=== PATIENT | female | born 1940 | race Caucasian/White ===

== ENCOUNTER 2020-05-09 08:40 | Outpatient (CLI) | payer MEDICARE, SELFPAY ==
--- NOTE | ~2020-05-09 | DEXA_ITS ---
Bone Density Report Name: Katia Sheth Age: 79 Sex: Female Ethnicity: White Date of : 1940 Indication: postmenopausal osteoporosis; monitoring treatment; height loss; Referring Provider: Gracy Sequeira Study: Bone densitometry was performed. Exam Date: May 09, 2020 Accession number: [id number] Bone Density: Region BMD T-score Z-score Classification AP Spine (L1-L4) 0.734 -2.8 -0.2 Osteoporosis Femoral Neck (Left) 0.542 -2.8 -0.5 Osteoporosis Total Hip (Left) 0.661 -2.3 -0.3 Osteopenia Total Hip Bilateral Avg 0.651 -2.4 -0.4 Osteopenia Femoral Neck (Right) 0.563 -2.6 -0.3 Osteoporosis Total Hip (Right) 0.639 -2.5 -0.5 Osteoporosis World Health Organization criteria for BMD impression classify patients as: Normal (T-score at or above -1.0), Osteopenia (T-score between -1.0 and -2.5), or Osteoporosis (T-score at or below -2.5). 10-year Fracture Risk: FRAX not reported because: Some T-score for Spine Total or Hip Total or Femoral Neck at or below -2.5 Treated for osteoporosis Previous Exams: Region Exam Age BMD T-score BMD Change BMD Change Date g/cm2 vs Baseline vs Previous AP Spine(L1-L4) 05/09/2020 79 0.734 -2.8 0.031(4.4%)# 0.016(2.2%) 09/25/2016 76 0.718 -3.0 0.015(2.1%)# -0.009(-1.3%) 09/23/2014 74 0.728 -2.9 0.024(3.5%)# 0.024(3.5%)# 08/01/2012 71 0.703 -3.1 Total Hip(Left) 05/09/2020 79 0.661 -2.3 -0.056(-7.9%)# -0.012(-1.8%) 09/25/2016 76 0.673 -2.2 -0.044(-6.2%)# -0.040(-5.6%)* 09/23/2014 74 0.713 -1.9 -0.005(-0.7%)# -0.005(-0.7%)# 08/01/2012 71 0.718 -1.8 Total Hip(Right) 05/09/2020 79 0.639 -2.5 0.005(0.8%)# -0.033(-4.9%)* 09/25/2016 76 0.672 -2.2 0.038(6.0%)# 0.008(1.2%) 09/23/2014 74 0.664 -2.3 0.030(4.7%)# 0.030(4.7%)# 08/01/2012 71 0.634 -2.5 *Denotes significance at 95% confidence level, LSC for AP Spine = 0.022 g/cm2, LSC for Total Hip = 0.027 g/cm2 Clinical Information Provided by Patient: Is being treated for osteoporosis Has used the following medications: Boniva (i.e. ibandronate), Vitamin D, Calcium Patient maximum height was 63.5 Menopause Age: 52 No regular weight bearing exercise Onset of menses at age 14 Number of children 2 Impression: The patient has osteoporosis, based on the Total Spine T-score. The BMD for the Total Hip(Right) decreased, changing by -4.9% since the last DXA exam. Discussion: SIGNIFICANT BONE L
--- NOTE | ~2020-05-09 | MM_ITS ---
CORRECTED REPORT SEE BOLD/ITALIC TEXT BELOW. 05/09/2020 sef EXAMINATION: MM screening rina BI w edgar HISTORY: Screening mammogram TECHNIQUE: Craniocaudal and mediolateral oblique 3-D tomosynthesis images were obtained and synthetic 2-D images were generated. CAD analysis was submitted and interpreted. COMPARISON: 04/29/2018, 11/05/2016 bilateral digital screening mammogram examinations BREAST PARENCHYMAL COMPOSITION: The breasts are heterogeneously dense, which may obscure small masses. FINDINGS: There is no evidence of suspicious mass, calcification, or architectural distortion to suggest malignancy in either breast. There has been no suspicious interval change. IMPRESSION: 1. No mammographic evidence of malignancy. 2. Recommend routine screening mammography in one year. BI-RADS Category 1: Negative Reviewed, dictated and finalized at location A. MTDD
== END 2020-05-09 08:41 | disposition home or self-care (01) ==
LOC: ANHIMG 08:48
PROVIDERS: PCP Family Medicine; Visit Provider Family Medicine
DX: Z12.31 Encounter for screening mammogram for malignant neoplasm of breast (principal); M81.0 Age-related osteoporosis without current pathological fracture; M85.852 Other specified disorders of bone density and structure, left thigh; M85.851 Other specified disorders of bone density and structure, right thigh
CPT/HCPCS: 77063; 77067; 77080

== ENCOUNTER 2021-06-06 17:15 | Inpatient (IN) | payer MEDICARE, SELFPAY ==
[2021-06-06] VITALS (7 sets, daily range): BP systolic 95–143; BP diastolic 57–73; PULSE 60–74; RESP 14–18; TEMP 36.3–36.6; O2SAT 98–100; BMI 20.7
--- NOTE | ~2021-06-06 | XR_ITS ---
EXAMINATION: XR hip RT min 2V EXAM DATE: 06/06/2021 18:23 INDICATION: Initial encounter following injury, with pain of the right hip. TECHNIQUE: Right hip frontal, crosstable lateral projections for interpretation. There is no prior study for comparison. FINDINGS: There is acute closed posttraumatic right subcapital femoral neck fracture with posterior a ngulation and probably mild impaction. Right hemipelvis intact. IMPRESSION: Acute right subcapital femoral neck fracture. Reviewed, dictated and finalized at location A.
--- NOTE | ~2021-06-06 | XR_ITS ---
EXAMINATION: XR surgery orthopedic EXAM DATE: 06/08/2021 15:39 INDICATION: Right olecranon fracture open reduction internal fixation. TECHNIQUE: Fluoroscopy used during right olecranon ORIF performed by Dr. Damian Andrea MD. Radiolo gist was not present for the imaging or procedure. Total fluoroscopic time of 21 seconds. The DAP f or this procedure was 0.0095 mGym2. A total of 5 images sent to PACS from the exam. FINDINGS: Images demonstrate reduction of previously seen distracted olecranon fracture, and placemen t of orthopedic fixation hardware. Correlate with procedure note. IMPRESSION: Fluoroscopy used during right olecranon ORIF. Reviewed, dictated and finalized at location A.
--- NOTE | ~2021-06-06 | XR_ITS ---
EXAMINATION: XR elbow RT 2V EXAM DATE: 06/06/2021 18:22 INDICATION: Right elbow pain. Fell on concrete. TECHNIQUE: Right elbow frontal and lateral projections. There is no prior study for comparison. FINDINGS: There is acute posttraumatic fracture through the middle of the right olecranon with about 2 cm of posterior retraction of the olecranon and also 90 degrees of rotation. There is evidence of a large posterior laceration indicating that this potentially could be open, please clinically correl ate. There is an overlying bandage. No elbow dislocation. IMPRESSION: Right olecranon fracture with significant retraction and angulation. Reviewed, dictated and finalized at location A. IMPRESSION: Right olecranon fracture with significant retraction and angulation .
--- NOTE | ~2021-06-06 | XR_ITS ---
EXAMINATION: XR hip RT min 2V DATE: 06/08/2021 16:36 INDICATION: Postoperative evaluation following bipolar type right hip hemiarthroplasty. TECHNIQUE: Anteroposterior and lateral views of the right hip were obtained. COMPARISON: 06/06/2021 FINDINGS: Interval resection of the fractured right femoral head and neck and placement of a bipolar type right hip hemiarthroplasty which appears well seated in near anatomic alignment. Expected small amount of subcutaneous gas in the postoperative bed. No new fractures identified. IMPRESSION: 1. Bipolar type right hip hemiarthroplasty, negative for postoperative purposes. Reviewed, dictated and finalized at location A. IMPRESSION: 1. Bipolar type right hip hemiarthroplasty, negative for postoperative purposes .
--- NOTE | 2021-06-06 18:12 | PC.NURSE ---
Pt in xray.
--- NOTE | 2021-06-06 18:45 | PC.NURSE ---
Attempted to place IV in patient. Pt states she would like to hold off on IV until seen by doctor and orders placed needing IV.
--- NOTE | 2021-06-06 18:52 | ED.GENADULT ---
HPI - General Adult General Chief complaint: Extremity Injury, Lower Stated complaint: hip pain after fall Time Seen by Provider: 06/06/21 17:47 Source: patient History of Present Illness HPI narrative: Patient is a 80 y/o female complaining right elbow and hip pain after a ground level fall on her drive way 3 hours ago. She describes her pain as sharp and rates it as 10/10. She states that movement worsens her pain. She was not able to get up after the fall. She did not hit her head and lose consciousness. She has no neck pain, back pain, chest pain or abdominal pain. She also has right elbow skin tear. She is not sure when she had her last Tetanus. Related Data Allergies Allergy/AdvReac Type Severity Reaction Status Date / Time Sulfa (Sulfonamide Allergy Unknown Skin Verified 06/06/21 23:05 Antibiotics) irritation sulfanilamide Allergy Unknown Unknown Verified 06/06/21 23:05 SULFA Allergy Unknown RASH Uncoded 09/29/14 13:40 Review of Systems Review of Systems: All systems reviewed & are unremarkable except as noted in HPI and below Constitutional: Constitutional: Denies chills, Denies fever(s), Denies headache(s) and Denies weakness Eyes: Eyes: Denies blurry vision ENT: Denies headache(s) and Denies neck pain Cardiovascular: Cardiovascular: Denies chest pain and Denies dyspnea Respiratory: Respiratory: Denies cough and Denies dyspnea Gastrointestinal: Gastrointestinal: Denies abdominal pain, Denies diarrhea, Denies nausea and Denies vomiting Genitourinary: Genitourinary: Denies hematuria and Denies dysuria Musculoskeletal: Musculoskeletal: Denies back pain, Reports arthralgias (right hip and elbow pain) and Denies neck pain Integumentary/Breasts: Skin/Breast: Reports other (skin tear right elbow) Neurologic: Denies headache(s) and Denies weakness PMFSH Past Medical History Medical History (Updated 06/15/21 @ 14:48 by Dot Morocho MD) Born by normal vaginal delivery Osteoporosis Surgical History Surgical History History of lumpectomy of right breast History of tonsillectomy History of tubal ligation [place] teeth removed Family History Family History Mother Family history of lung cancer Sibling Acute myocardial infarction Father Family history of Alzheimer's disease Social History Social History (Updated 06/06/21 @ 23:09 by Radha Mullins RN) Smoking status: Never smoker Second hand tobacco smoke exposure: No Alcohol intake: never Substance use: never Substance use type: does not use Living arrangements: alone Occupation/Education: retired Gender identity (if verbalized by the patient): Female Spiritual care concerns: No Agree to blood products: Yes Exam Const: General: no acute distress and well developed Orientation/consciousness: oriented to person, oriented to place, oriented to time and patient oriented x3 HENMT: Head: normocephalic Ears: external ears normal General nose exam: Normal external nose present Eyes: General: appearance normal, both eyes and all related structures Conjunctivae: conjunctivae normal Neck: Neck: normal visual inspection and full ROM Chest: Chest palpation & inspection: normal inspection of the chest and no tenderness Resp: Effort & Inspection: normal respiratory effort Auscultation: clear to auscultation bilaterally Cardio: Rate: regular rate Rhythm: regular rhythm GI: GI Palp: No abdominal tenderness and Yes Soft to palpation Skin: General skin exam: normal color and turgor normal Trauma: other (skin tear right elbow) Neuro: General: oriented to person, oriented to place, oriented to time and patient oriented x3 Cognition (Neuro): normal cognition Extrem: General: normal to inspection, full ROM and no pedal edema Right upper extremity: elbow/forearm swelling of the olecranon Right lower extremity: hip/thigh De
[2021-06-06] MEDS: MORPHINE SULFATE (*CRX) 4 MG/ML INJ IV PUSH ×2 (19:08→21:22)
[2021-06-06 19:10] LABS: Basophils Percent Auto 0.2 % (0.2-1.2); Eosinophils Absolute Auto 0.1 K/mm3 (0-0.3); Eosinophils Percent Auto 0.5 % (0-4.4); Hemoglobin 12.8 g/dL (12.0-15.0); Immature Granulocyte Absolute 0.07 K/mm3 (0.00-0.031); Immature Granulocyte Percent A 0.6 % (0-0.5); Lymphocytes Absolute Auto 1.28 K/mm3 (0.9-3.2); Lymphocytes Percent Auto 10.3 % (18.3-44.2); Mean Corpuscular Hemoglobin 28.7 pg (26-34); Mean Corpuscular Volume 89.7 fl (80-100); Mean Platelet Volume 9.3 fl (7.4-10.4); Monocytes Absolute Auto 0.8 K/mm3 (0.1-0.6); Monocytes Percent Auto 6.3 % (2.6-8.5); Neutrophils Absolute Auto 10.2 K/mm3 (1.3-6.7); Neutrophils Percent Auto 82.1 % (45.5-73.1); Platelet Count Result 202 k/mm3 (150-375); Red Blood Count 4.46 M/mm3 (4.2-5.4); Red Cell Distribution Width 12.4 % (11.5-14.5); White Blood Count 12.4 K/mm3 (4.5-10.0)
--- NOTE | 2021-06-06 19:14 | PC.NURSE ---
Assumed care of pt at this time. Pt alert, supine on stretcher. VSS.
[2021-06-06 19:19] LABS: INR 1.1; Prothrombin Time 13.8 Seconds (11.1-14.7)
[2021-06-06 19:20] LABS: Partial Thromboplastin Time 25.2 SECONDS (22.3-36.8)
[2021-06-06 19:24] LABS: Alanine Aminotransferase 24 U/L (4-35); Albumin Level 4.2 g/dL (3.5-5.1); Alkaline Phosphatase 38 U/L (38-126); Anion Gap 8 mmol/L (8-16); Aspartate Amino Transferase 34 U/L (14-36); Bilirubin,Total 0.6 mg/dL (0.2-1.3); Blood Urea Nitrogen 18 mg/dL (7-17); Calcium 9.2 mg/dL (8.4-10.2); Carbon Dioxide 23 mmol/L (22-30); Chloride 102 mmol/L (98-107); Estimated CRCL calculation 35 ml/min; Estimated Glomerular Filt Rate 60; Glucose 99 mg/dL (65-110); Potassium 4.6 mmol/L (3.4-5.0); Sodium 133 mmol/L (137-145)
[2021-06-06] MEDS: TETANUS,DIPHTHERIA,AC PERTUSSIS ADULT (0.5 ML) BOOSTRIX IM (19:31)
--- NOTE | 2021-06-06 21:11 | PM.IMPN ---
Subjective Date/time seen: 06/06/21 21:11 Objective Data Vital Signs Vital Signs: Vital Signs - 24 hr 06/06/21 17:26 06/06/21 18:25 06/06/21 19:02 Temperature 97.4 F L Pulse Rate 72 60 63 Respiratory Rate 15 15 15 Blood Pressure 95/73 L 136/57 L 143/63 H Pulse Oximetry 98 99 100 Meds/Results Medications: Active Medications Generic Name Dose Route Start Last Admin Trade Name Freq PRN Reason Stop Dose Admin Cefazolin Sodium 2 gm in 50 mls @ 100 mls/hr 06/06/21 20:49 Ancef 2 Gm/D5w 50 Ml IVPB 06/06/21 21:18 ONCE STA Morphine Sulfate 4 mg 06/06/21 19:54 Morphine Sulfate (*Crx) 4 Mg/Ml Inj IV PUSH Q4H PRN Pain Rated 7-10 Radiology Results: ITS Impressions Elbow X-Ray 06/06/21 18:27 IMPRESSION: Right olecranon fracture with significant retraction and angulation. Hip X-Ray 06/06/21 18:30 IMPRESSION: Acute right subcapital femoral neck fracture. Labs Labs: Laboratory Results - last 24 hr 06/06/21 06/06/21 06/06/21 19:03 19:03 19:03 WBC 12.4 H RBC 4.46 Hgb 12.8 Hct 40.0 MCV 89.7 MCH 28.7 MCHC 32.0 RDW 12.4 Plt Count 202 MPV 9.3 Immature Gran % (Auto) 0.6 H Neut % (Auto) 82.1 H Lymph % (Auto) 10.3 L [place] % (Auto) 6.3 Eos % (Auto) 0.5 Baso % (Auto) 0.2 Lymph # (Auto) 1.28 [place] # (Auto) 0.8 H Eos # (Auto) 0.1 Baso # (Auto) 0.0 Abs Immat Gran (auto) 0.07 H Absolute Neuts (auto) 10.2 H Absolute Nucleated RBC 0.0 Nucleated RBC % 0.0 PT 13.8 INR 1.1 APTT 25.2 Sodium 133 L Potassium 4.6 Chloride 102 Carbon Dioxide 23 Anion Gap 8 BUN 18 H Creatinine 0.90 Estim Creat Clear Calc 35 Estimated GFR 60 Glucose 99 Calcium 9.2 Total Bilirubin 0.6 AST 34 ALT 24 Alkaline Phosphatase 38 Total Protein 7.0 Albumin 4.2
--- NOTE | 2021-06-06 21:12 | PM.IMHP ---
H&P: HPI History of Present Illness Date/Time: 06/06/21 21:12 Chief Complaint: FALL Narrative: THIS IS A 80-YEAR-OLD FEMALE WITH KNOWN SIGNIFICANT PAST MEDICAL HISTORY DRCathy SUFFERED A FALL FROM A STEP UP DEVICE SHE WAS CLEAN THE WINDOWS AND ON HER WAY DOWN LOST HER MATERIAL LISTER AND FELT ON THE SIDE UNDO HER DRIVEWAY SHE HAS EXCRUCIATING PAIN OF HER RIGHT ELBOW AND LEFT HIP SHE WAS NOT ABLE TO GET UP ON HER ON THERE WAS NO LOSS OF CONSCIOUSNESS. SHE HAS BEEN IN HER USUAL STATE OF HEALTH UP UNTIL THIS, SHE DENIES ANY TRAUMA TO THE HEAD WELL. PRELIMINARY WORKUP WAS SIGNIFICANT FOR RIGHT HIP SUBCAPITAL FRACTURE AND RIGHT OLECRANON FRACTURE. Review of Systems Review of Systems: Narrative: PATIENT PRESENTED TO THE EMERGENCY ROOM AFTER FALL ON HER RIGHT SIDE AND EXCRUCIATING PAIN TO THE ELBOW AND HIP ON THE RIGHT SIDE Constitutional: Constitutional: Denies chills, Denies fatigue, Denies fever(s) and Denies weakness Eyes: Eyes: Denies change in vision ENT: Denies dysphagia, Denies vertigo, Denies dizziness, Denies nasal congestion, Denies nasal discharge and Denies nasal obstruction Cardiovascular: Cardiovascular: Denies irregular heart rhythm, Denies claudication, Denies lightheadedness, Denies radiating jaw, neck or arm pain, Denies palpitations and Denies dyspnea on exertion Respiratory: Respiratory: Denies cough and Denies dyspnea Gastrointestinal: Gastrointestinal: Denies dyspepsia, Denies diarrhea, Denies nausea and Denies vomiting Genitourinary: Genitourinary: Reports no additional female genitourinary complaints Musculoskeletal: Musculoskeletal: Reports deformity, Reports arthralgias and Reports limited range of motion Comments: RIGHT HIP AND RIGHT ELBOW Integumentary/Breasts: Skin/Breast: Reports system reviewed and no additional complaints, except as docu Neurologic: Reports system reviewed and no additional complaints, except as documented Psychiatric: Psychiatric: Reports no additional psychiatric complaints Endocrine: Endocrine: Reports no additional endocrine complaints Hematologic/Lymphatic: Hematologic/Lymphatic: Reports no additional hematologic/lymphatic complaints Allergic/Immunologic: Allergic/Immunologic: Reports no additional allergic/immunologic complaints [facility] Past Medical History Medical History (Updated 06/06/21 @ 22:29 by Al Mclean MD) Born by normal vaginal delivery Osteoporosis Surgical History Surgical History History of lumpectomy of right breast History of tonsillectomy History of tubal ligation [place] teeth removed Family History Family History Mother Family history of lung cancer Sibling Acute myocardial infarction Father Family history of Alzheimer's disease Social History Social History Smoking status: Never smoker Second hand tobacco smoke exposure: No Alcohol intake: never Substance use: never Substance use type: does not use Gender identity (if verbalized by the patient): Female Spiritual care concerns: Yes Agree to blood products: Yes Meds Home Medications and Allergies Home Medications Medication Instructions Recorded Confirmed Type No Home Medications 06/06/21 06/06/21 History Allergies Allergy/AdvReac Type Severity Reaction Status Date / Time Sulfa (Sulfonamide Allergy Unknown Skin Verified 06/06/21 17:29 Antibiotics) irritation sulfanilamide Allergy Unknown Unknown Verified 06/06/21 17:29 SULFA Allergy Unknown RASH Uncoded 09/29/14 13:40 Vital Signs Vital Signs - 24 hr 06/06/21 17:26 06/06/21 18:25 06/06/21 19:02 Temperature 97.4 F L Pulse Rate 72 60 63 Respiratory Rate 15 15 15 Blood Pressure 95/73 L 136/57 L 143/63 H Pulse Oximetry 98 99 100 Exam Narrative: Exam Narrative: LAYING IN GURNEY Const: General: comfortable, no acute distress, we
[2021-06-06] MEDS: ceFAZolin 2 GM/D5W 50 ML 2 GM/50 ML BAG IVPB (21:18)
[2021-06-06] MEDS: ONDANSETRON INJ 4 MG/2 ML VIAL IV PUSH (22:04)
--- NOTE | 2021-06-06 22:53 | ADMGEN ---
This patient, Katia Sheth, was admitted to Medical Room 348-01. Patient/family oriented to hospital policies and general routines including ID bracelet, bed and alarms, visiting hours, pain management, procedures, bathroom and other care routines, personal items, smoking policy, room service/diet, and visiting hours. Information on how to activate the Rapid Response Team has been discussed. Patient/Family are encouraged to report perceived risks to care and to ask questions if they do not understand what they are told or what they should do.
[2021-06-07 05:37] VITALS: BP 151/62; PULSE 73; RESP 17; TEMP 36.1; O2SAT 99
[2021-06-07] MEDS: MORPHINE SULFATE (*CRX) 4 MG/ML INJ IV PUSH ×4 (05:38→21:04)
--- NOTE | 2021-06-07 08:42 | PM.IMPN ---
Progress Note: A&P Assessment and Plan (1) Fall: Code(s): W19.XXXA - Unspecified fall, initial encounter Status: Acute Assessment and Plan: Fell from the running board of a truck while washing it abrasion to the right arm, and limited range of motion to left leg Right hip xray showed acute right subcapital femoral neck fracture Right elbow xray showed olecranon fracture with significant retraction and angulation. Ortho consult-thank you for your help surgery scheduled for 06/08/21 Morphine 4mg IV PRN for pain SCDs bedrest Mechanical fall PT OT (2) Closed displaced fracture of right femoral neck: Code(s): S72.001A - Fracture of unspecified part of neck of right femur, initial encounter for closed fracture Status: Acute Assessment and Plan: Right hip xray showed acute right subcapital femoral neck fracture Ortho consulted Morphine 4mg IV Q4hr PRN Bed rest (3) Closed fracture of right olecranon process: Qualifiers: Encounter type: initial encounter Qualified Code(s): S52.021A - Displaced fracture of olecranon process without intraarticular extension of right ulna, initial encounter for closed fracture Code(s): S52.021A - Displaced fracture of olecranon process without intraarticular extension of right ulna, initial encounter for closed fracture Status: Acute Assessment and Plan: Right elbow xray showed olecranon fracture with significant retraction and angulation. Ortho consulted thank you Morphine 4mg IV Q4hr PRN (4) Skin tear: Status: Acute Assessment and Plan: STATUS POST SUTURING LOCAL CARE (5) Osteoporosis: Code(s): M81.0 - Age-related osteoporosis without current pathological fracture Status: Acute Assessment and Plan: Was on boniva for many years PCP took her off and said she was on it long enough Time Spent With Patient Time with patient: 25 - 35 minutes Subjective Date/time seen: 06/07/21 08:42 Interval history: Katia is a 80-year-old female with past medical history of osteoporosis who presented the ED after a fall yesterday. Patient stated that she was helping her friend clean his truck and she was on the running board which is chrome and stated that she just lost her balance and fell to the ground. Currently she does not have much pain however she does say in her right hip more in the groin and her pain is a 7/10 when she moves or does any activity with it. Orthopedics is on the case. patient denies any other complaints with chest pain shortness of breath nausea vomiting diarrhea constipation , sweats or chills. Patient is concerned about blood clots will order SCDs for right now. Review of Systems Review of Systems: All systems reviewed & are unremarkable except as noted in HPI and below Exam Const: General: cooperative, healthy appearing, no acute distress, well developed, alert, awake, Physically active and uncomfortable Nutritional Appearance: average body habitus, well nourished and thin Orientation/consciousness: oriented to person, oriented to place, oriented to time and patient oriented x3 Limitations: physical limitations HENMT: Head: normal to inspection, normocephalic and atraumatic Ears: hearing grossly normal bilaterally and external ears normal General nose exam: Normal external nose present, Normal nares present and Normal nasal mucous membranes and turbinates present Face and sinus: normal facial exam Teeth and gingiva: dentition normal Eyes: General: appearance normal, both eyes and all related structures Sclera: sclerae normal Pupils: Equal, round and reactive pupils present EOM: EOMs intact bilaterally Neck: Neck: full ROM, no lymphadenopathy and no JVD Thyroid: thyroid normal Lymphatic: no lymphadenopathy noted Resp: Effort & Inspection: normal respiratory effort, able to speak in complete sentences and
--- NOTE | 2021-06-07 11:09 | PM.CNOR ---
History of Present Illness HPI Consult date: 06/07/21 Consult reason: fracture (Right Hip and right olecranon) Chief complaint: Right Hip Fx Narrative: 80 yo female who was on the running board of a truck drying it when she fell backward injuring herself. She was seen in the ER and found to have an abrasion to the right elbow and a displaced olecranon fx and a Valgus femoral neck fracture which is a Garden 3. O: Right hip Tender to palp gr troch NV intact distally calves NT bilat. log roll painful into groin area. Skin is intact Moves toes and ankle with min pain good cap refill sens intact all sensory distributions distally Right Elbow In splint from ER Posterior and well fitting no drainage noted. NV intact distally Good cap refill shoulder NT to direct palp but tender with gentle ROM Xray of right hip shows femoral neck fx with sign anterior apex angulation seen on lateral Garden 3 fx xray of elbow shows displaced lg fragment of olecranon which is displaced. No obvious indication of open fx but lac is visible as soft tissue swelling A: right elbow olecranon fx right hip garden 3 fem neck fx Plan; Surgery for hemiarthroplasty surgery for ORIF of olecranon fx Consent discussion included risks, benefits and alternative treatment options. Trapeize to bed Lovenox today none after MN NPO after MN for surg in mid AM Hydrocodone for mild pain PMFSH Past Medical History Medical History Born by normal vaginal delivery Osteoporosis Surgical History Surgical History History of lumpectomy of right breast History of tonsillectomy History of tubal ligation [place] teeth removed Family History Family History Mother Family history of lung cancer Sibling Acute myocardial infarction Father Family history of Alzheimer's disease Social History Social History (Updated 06/06/21 @ 23:09 by Radha Mullins RN) Smoking status: Never smoker Second hand tobacco smoke exposure: No Alcohol intake: never Substance use: never Substance use type: does not use Living arrangements: alone Occupation/Education: retired Gender identity (if verbalized by the patient): Female Spiritual care concerns: No Agree to blood products: Yes Meds Home Medications and Allergies Home Medications Medication Instructions Recorded Confirmed Type No Home Medications 06/06/21 06/06/21 History Allergies Allergy/AdvReac Type Severity Reaction Status Date / Time Sulfa (Sulfonamide Allergy Unknown Skin Verified 06/06/21 23:05 Antibiotics) irritation sulfanilamide Allergy Unknown Unknown Verified 06/06/21 23:05 SULFA Allergy Unknown RASH Uncoded 09/29/14 13:40 Vital Signs Vital Signs - 24 hr 06/06/21 17:26 06/06/21 18:25 06/06/21 19:02 Temperature 36.3 C L Pulse Rate 72 60 63 Respiratory Rate 15 15 15 Blood Pressure 95/73 L 136/57 L 143/63 H Pulse Oximetry 98 99 100 06/06/21 21:10 06/06/21 21:27 06/06/21 22:34 Temperature Pulse Rate 73 69 Respiratory Rate 17 14 Blood Pressure 139/71 137/60 Pulse Oximetry 98 100 98 06/06/21 23:17 06/07/21 05:37 Temperature 36.6 C 36.1 C L Pulse Rate 74 73 Respiratory Rate 18 17 Blood Pressure 143/57 H 151/62 H Pulse Oximetry 98 99 Results Labs Result Diagrams: 06/06/21 19:03 06/06/21 19:03 Labs: Abnormal lab results 06/06/21 06/06/21 Range/Units 19:03 19:03 WBC 12.4 H (4.5-10.0) K/mm3 Immature Gran % (Auto) 0.6 H (0-0.5) % Neut % (Auto) 82.1 H (45.5-73.1) % Lymph % (Auto) 10.3 L (18.3-44.2) % [place] # (Auto) 0.8 H (0.1-0.6) K/mm3 Abs Immat Gran (auto) 0.07 H (0.00-0.031) K/mm3 Absolute Neuts (auto) 10.2 H (1.3-6.7) K/mm3 Sodium 133 L (137-145) mmol/L BUN 18 H (7-17) mg/dL H & H 06/06/21
[2021-06-07] MEDS: ENOXAPARIN 40 MG/0.4 ML SYRINGE SUB-Q (11:44)
[2021-06-07] MEDS: ONDANSETRON INJ 4 MG/2 ML VIAL IV PUSH (11:44)
[2021-06-07 14:00] VITALS: BP 132/53; PULSE 66; RESP 20; TEMP 36.8; O2SAT 98
[2021-06-07] MEDS: DOCUSATE SODIUM 100 MG CAPSULE PO (16:25)
[2021-06-07 22:00] VITALS: BP 108/46; PULSE 64; RESP 14; TEMP 37.2; O2SAT 96
[2021-06-08] VITALS (14 sets, daily range): BP systolic 120–184; BP diastolic 49–99; PULSE 64–76; RESP 10–20; TEMP 35.8–36.9; O2SAT 94–100
[2021-06-08] MEDS: ONDANSETRON INJ 4 MG/2 ML VIAL IV PUSH ×4 (01:18→19:21)
[2021-06-08] MEDS: MORPHINE SULFATE (*CRX) 4 MG/ML INJ IV PUSH ×3 (01:18→09:39)
[2021-06-08 06:09] LABS: Hematocrit 35.5 % (37.0-47.0); Hemoglobin 11.5 g/dL (12.0-15.0); Mean Corpuscular HGB Conc 32.4 g/dl (32-36); Mean Corpuscular Hemoglobin 28.5 pg (26-34); Mean Corpuscular Volume 87.9 fl (80-100); Mean Platelet Volume 9.3 fl (7.4-10.4); Platelet Count Result 152 k/mm3 (150-375); Red Blood Count 4.04 M/mm3 (4.2-5.4); Red Cell Distribution Width 12.3 % (11.5-14.5)
[2021-06-08 06:15] LABS: Alanine Aminotransferase 16 U/L (4-35); Albumin Level 3.6 g/dL (3.5-5.1); Alkaline Phosphatase 43 U/L (38-126); Anion Gap 6 mmol/L (8-16); Aspartate Amino Transferase 20 U/L (14-36); Bilirubin,Total 0.8 mg/dL (0.2-1.3); Blood Urea Nitrogen 9 mg/dL (7-17); Calcium 8.2 mg/dL (8.4-10.2); Carbon Dioxide 23 mmol/L (22-30); Chloride 101 mmol/L (98-107); Estimated CRCL calculation 39 ml/min; Estimated Glomerular Filt Rate > 60; Glucose 103 mg/dL (65-110); Magnesium 1.9 mg/dL (1.6-2.3); Potassium 4.3 mmol/L (3.4-5.0); Sodium 130 mmol/L (137-145)
--- NOTE | 2021-06-08 07:11 | P.PNIM_ITS ---
Progress Note: A&P Assessment and Plan (1) Fall: Code(s): W19.XXXA - Unspecified fall, initial encounter Status: Acute Assessment and Plan: * Fell from the running board of a truck while washing it * abrasion to the right arm, and limited range of motion to left leg * Right hip xray showed acute right subcapital femoral neck fracture * Right elbow xray showed olecranon fracture with significant retraction and angulation. * Ortho consult-thank you for your help * surgery scheduled for 06/08/21 * Morphine 4mg IV PRN for pain * SCDs * bedrest * Mechanical fall * PT OT (2) Closed displaced fracture of right femoral neck: Code(s): S72.001A - Fracture of unspecified part of neck of right femur, initial encounter for closed fracture Status: Acute Assessment and Plan: * Right hip xray showed acute right subcapital femoral neck fracture * Ortho consulted * ortho to manage * Morphine 4mg IV Q4hr PRN * Bed rest (3) Closed fracture of right olecranon process: Qualifiers: Encounter type: initial encounter Qualified Code(s): S52.021A - Displaced fracture of olecranon process without intraarticular extension of right ulna, initial encounter for closed fracture Code(s): S52.021A - Displaced fracture of olecranon process without intraarticular extension of right ulna, initial encounter for closed fracture Status: Acute Assessment and Plan: * Right elbow xray showed olecranon fracture with significant retraction and angulation. * Ortho consulted thank you * ortho to manage * Morphine 4mg IV Q4hr PRN (4) Skin tear: Status: Acute Assessment and Plan: * STATUS POST SUTURING * LOCAL CARE (5) Osteoporosis: Code(s): M81.0 - Age-related osteoporosis without current pathological fracture Status: Acute Assessment and Plan: * Was on boniva for many years * PCP took her off and said she was on it long enough Subjective Date/time seen: 06/08/21 07:11 Interval history: Katia is a 80-year-old female with past medical history of osteoporosis who presented the ED after a fall yesterday. Patient stated that she is still experiencing a lot of pain especially in the groin are of the right hip. She explained that she woke up out of her sleep 4 times through the night with increased pain. She denies any other complaints including chest pain, shortness of breath, nausea, vomiting, sweats, chills, fevers, or numbness and tingling. Review of Systems Review of Systems: All systems reviewed & are unremarkable except as noted in HPI and below Exam Const: General: cooperative, healthy appearing, no acute distress, well developed, alert, awake, Physically active, anxious and uncomfortable Nutritional Appearance: average body habitus, well nourished and thin Orientation/consciousness: oriented to person, oriented to place, oriented to time and patient oriented x3 Limitations: physical limitations HENMT: Head: normal to inspection, normocephalic and atraumatic Ears: hearing grossly normal bilaterally and external ears normal General nose exam: Normal external nose present, Normal nares present and Normal nasal mucous membranes and turbinates present Face and sinus: normal facial exam Teeth and gingiva: dentition normal Eyes: General: appearance normal, both eyes and all related structures Sclera: sclerae normal Pupils
--- NOTE | 2021-06-08 07:11 | PM.IMPN ---
Progress Note: A&P Assessment and Plan (1) Fall: Code(s): W19.XXXA - Unspecified fall, initial encounter Status: Acute Assessment and Plan: Fell from the running board of a truck while washing it abrasion to the right arm, and limited range of motion to left leg Right hip xray showed acute right subcapital femoral neck fracture Right elbow xray showed olecranon fracture with significant retraction and angulation. Ortho consult-thank you for your help surgery scheduled for 06/08/21 Morphine 4mg IV PRN for pain SCDs bedrest Mechanical fall PT OT (2) Closed displaced fracture of right femoral neck: Code(s): S72.001A - Fracture of unspecified part of neck of right femur, initial encounter for closed fracture Status: Acute Assessment and Plan: Right hip xray showed acute right subcapital femoral neck fracture Ortho consulted ortho to manage Morphine 4mg IV Q4hr PRN Bed rest (3) Closed fracture of right olecranon process: Qualifiers: Encounter type: initial encounter Qualified Code(s): S52.021A - Displaced fracture of olecranon process without intraarticular extension of right ulna, initial encounter for closed fracture Code(s): S52.021A - Displaced fracture of olecranon process without intraarticular extension of right ulna, initial encounter for closed fracture Status: Acute Assessment and Plan: Right elbow xray showed olecranon fracture with significant retraction and angulation. Ortho consulted thank you ortho to manage Morphine 4mg IV Q4hr PRN (4) Skin tear: Status: Acute Assessment and Plan: STATUS POST SUTURING LOCAL CARE (5) Osteoporosis: Code(s): M81.0 - Age-related osteoporosis without current pathological fracture Status: Acute Assessment and Plan: Was on boniva for many years PCP took her off and said she was on it long enough Subjective Date/time seen: 06/08/21 07:11 Interval history: Katia is a 80-year-old female with past medical history of osteoporosis who presented the ED after a fall yesterday. Patient stated that she is still experiencing a lot of pain especially in the groin are of the right hip. She explained that she woke up out of her sleep 4 times through the night with increased pain. She denies any other complaints including chest pain, shortness of breath, nausea, vomiting, sweats, chills, fevers, or numbness and tingling. Review of Systems Review of Systems: All systems reviewed & are unremarkable except as noted in HPI and below Exam Const: General: cooperative, healthy appearing, no acute distress, well developed, alert, awake, Physically active, anxious and uncomfortable Nutritional Appearance: average body habitus, well nourished and thin Orientation/consciousness: oriented to person, oriented to place, oriented to time and patient oriented x3 Limitations: physical limitations HENMT: Head: normal to inspection, normocephalic and atraumatic Ears: hearing grossly normal bilaterally and external ears normal General nose exam: Normal external nose present, Normal nares present and Normal nasal mucous membranes and turbinates present Face and sinus: normal facial exam Teeth and gingiva: dentition normal Eyes: General: appearance normal, both eyes and all related structures Sclera: sclerae normal Pupils: Equal, round and reactive pupils present EOM: EOMs intact bilaterally Neck: Neck: full ROM, no lymphadenopathy and no JVD Thyroid: thyroid normal Lymphatic: no lymphadenopathy noted Resp: Effort & Inspection: normal respiratory effort, able to speak in complete sentences and no cough Auscultation: clear to auscultation bilaterally Cardio: Jugular venous distension: no JVD Rate: regular rate Rhythm: regular rhythm Heart sounds: S1 normal heart sound present and S2 normal heart sound present Peripheral pul
--- NOTE | 2021-06-08 10:46 | WPDANESEPPF ---
Anes - Initial Pre Proc Eval Procedure: Operation Date: 06/08/21 11:30 Proposed Procedures p Right Bipolar Hip Replacement - Damian Andrea MD s Open Redution Internal Fixation Right Elbow - Damian Andrea MD Date/Time: 06/08/21 10:46 Surgeon: Al Mclean MD Pre Op Diagnosis: Right Hip Fx Patient Data Age: 80 Gender: F Height: 1.57 m Weight: 51.5 kg Last Vital Signs Temp 36.9 C 06/08/21 05:40 Pulse 67 06/08/21 05:40 Resp 14 06/08/21 05:40 BP 120/54 L 06/08/21 05:40 Pulse Ox 97 06/08/21 05:40 Allergies Allergy/AdvReac Type Severity Reaction Status Date / Time Sulfa (Sulfonamide Allergy Unknown Skin Verified 06/06/21 23:05 Antibiotics) irritation sulfanilamide Allergy Unknown Unknown Verified 06/06/21 23:05 SULFA Allergy Unknown RASH Uncoded 09/29/14 13:40 Home Medications Medication Instructions Recorded Confirmed Type No Home Medications 06/06/21 06/06/21 History Laboratory Tests 06/08/21 06/08/21 05:48 05:48 WBC 8.0 K/mm3 K/mm3 (4.5-10.0) RBC 4.04 M/mm3 L M/mm3 (4.2-5.4) Hgb 11.5 g/dL L g/dL (12.0-15.0) Hct 35.5 % L % (37.0-47.0) MCV 87.9 fl fl (80-100) MCH 28.5 pg pg (26-34) MCHC 32.4 g/dl g/dl (32-36) RDW 12.3 % % (11.5-14.5) Plt Count 152 k/mm3 k/mm3 (150-375) MPV 9.3 fl fl (7.4-10.4) Sodium 130 mmol/L L mmol/L (137-145) Potassium 4.3 mmol/L mmol/L (3.4-5.0) Chloride 101 mmol/L mmol/L (98-107) Carbon Dioxide 23 mmol/L mmol/L (22-30) Anion Gap 6 mmol/L L mmol/L (8-16) BUN 9 mg/dL D mg/dL (7-17) Creatinine 0.80 mg/dL mg/dL (0.7-1.0) Estim Creat Clear Calc 39 ml/min ml/min Estimated GFR > 60 (59 - ) Glucose 103 mg/dL mg/dL (65-110) Calcium 8.2 mg/dL L mg/dL (8.4-10.2) Magnesium 1.9 mg/dL mg/dL (1.6-2.3) Total Bilirubin 0.8 mg/dL mg/dL (0.2-1.3) AST 20 U/L U/L (14-36) ALT 16 U/L U/L (4-35) Alkaline Phosphatase 43 U/L U/L (38-126) Total Protein 6.0 g/dL L g/dL (6.3-8.2) Albumin 3.6 g/dL g/dL (3.5-5.1) Patient hx anesthesia problems: none Family hx anesthesia problems: none [facility] Past Medical History Medical History Born by normal vaginal delivery Osteoporosis Surgical History Surgical History History of lumpectomy of right breast History of tonsillectomy History of tubal ligation [place] teeth removed Family History Family History Mother Family history of lung cancer Sibling Acute myocardial infarction Father Family history of Alzheimer's disease Social History Social History (Updated 06/06/21 @ 23:09 by Radha Mullins RN) Smoking status: Never smoker Second hand tobacco smoke exposure: No Alcohol intake: never Substance use: never Substance use type: does not use Living arrangements: alone Occupation/Education: retired Gender identity (if verbalized by the patient): Female Spiritual care concerns: No Agree to blood products: Yes Anes - Eval Final PreProcedure Day of Procedure 06/08/21 10:46 Patient weight: normal Heart: regular rate and rhythm Lungs: clear to auscultation and normal air movement Airway: Mallampati scale class II Neurological: alert and oriented Last oral intake: >/= 8 hours ASA classification: II Emergent: no Anesthetic plan: proceed Anesthesia type and monitoring: general LMA and standard monitoring Informed Consent: The patient's anesthetic plan and its attendant risks and benefits were discussed with the patient/family/POA. Questions were solicited and answers provided to the satisfaction of the patient/family/POA.
[2021-06-08] MEDS: LACTATED RINGERS 1,000 ML 30 ML IV CONT ×2 (11:26→16:54)
[2021-06-08] MEDS: fentaNYL CITRATE INJ (*CRX) 100 MCG/2 ML VIAL 25 MCG IV PUSH ×5 (11:27→17:07)
--- NOTE | 2021-06-08 12:06 | WPDHPUPDATE1 ---
History and Physical Update Update Date/Time: 06/08/21 12:06 History and Physical has been reviewed, including an updated exam of the patient. There are NO changes in the patient's condition. Risks, benefits, and alternatives have been discussed and questions answered. Patient agrees to proceed with procedure.
[2021-06-08] MEDS: ceFAZolin 2 GM/D5W 50 ML 2 GM/50 ML BAG IVPB (12:21)
--- NOTE | 2021-06-08 14:13 | W.PM.PROC2 ---
Procedure Note - Detailed Date of Procedure 06/08/21 Pre-op Diagnosis Right Hip Fx Garden 3 Post-op Diagnosis same Procedure Performed Hemiarthroplasty with Accolade 2 Press fit. Surgeon Damian Andrea MD Regrader Erica Anesthesia general Indications Garden 3 femoral neck fx s/p fall from the running board of a truck. Findings Garden 3 hip fx Description of Procedure The patient was identified and brought to the operating room and placed in supine position. General anesthetic was induced and then she was moved into the left lateral decubitus presenting her right operative hip to the surgeon. The pegboard was used to support her in this position well-padded pegs were utilized. An axillary roll was utilized. All bony prominences were well padded. The pegs were well padded. She was then sterilely prepped and draped in the usual fashion. The greater trochanter was outlined on the skin and a posterior approach was marked with a marker. The juan that I had placed on her skin was visible prior to making the incision. We performed a surgical time in timeout confirming this was the correct patient and the correct side. She had received appropriate antibiotics for the proposed procedure. All the equipment necessary for the proposed procedure was available. A posterior approach was utilized. Skin incision of approximately 15 cm was made over the posterior 1/3 of the greater trochanter. This was taken sharply through the skin subcutaneous dissection was done down to the level the trochanteric bursa. The fascia ge was identified and opened. Surgeon's finger was used to palpate the gluteus sandy insertion posteriorly. The gluteus sandy was then opened coincident with the incision and the muscles were spread. A Charnley C retractor was then utilized. Hemostasis was obtained throughout with electrocautery. In placing the Charnley the sciatic nerve was carefully identified and protected. The piriformis was identified and tagged and removed from the piriformis fossa. The external rotators were identified tagged and brought up the capsule as well. The superior 1/3 of the quadratus was removed from the bone with electrocautery. The capsule was then T'd. The corners of the capsule were tagged. The femoral neck fracture was then identified. The hip ball was dislocated. It measured 42 mm. And this was the ball that was ultimately chosen. We S estimated and trialed the hip all confirming that 42 was the correct size. The guide was then utilized and a cut of the proximal femur was made 1 cm above the lesser trochanter. The canal was then found with the Heriberto and then the T-handled canal finer was used. Sequential reaming was done up to a 5. Which was the chosen implant as well. Trial reduction was done the 0 neck length was used and excellent fit was obtained. Leg lengths were equal. Flexion to 90 and abduction to 45 with internal rotation to 45 was relatively stable. Extension was stable. There was no push-pull. At this point we chose these implants and placed the 5. Stem. We then trialed with the 0 neck length and use that for the actual implant. Once again I checked the stability and it was excellent. We then copiously irrigated as we had done prior to implantation. The fascia ge was closed with 2. Ethibond in a [id number] fashion. The external fascia of the gluteus was closed with a running stitch. The capsule was closed with a 2 Ethibond in a running stitch in the piriformis and the external rotators along with the capsular stitches were brought through 2 drill holes in the greater trochanter. This closure was done before the fascia ge and the gluteus sandy had been closed. Prieb Vicryl was used to close the subcutaneous tissues and a running 4 0 Monocryl was used for the skin. Surgical glue was used and a silver dressing was applied. The patient remained in the operating room as a 2nd procedure was planned. Open reduct
--- NOTE | 2021-06-08 15:54 | P.OP_ITS ---
Procedure Note - Detailed Date of Procedure 06/08/21 Pre-op Diagnosis Right elbow olecranon fx Post-op Diagnosis same Procedure Performed Irrigation and debridement of Open fracture, Open Reduction and Internal Fixation of Olecranon fracture with Colby locking screws. Surgeon Damian Andrea MD Conservation Science Teacher murali and Keri Anesthesia general Indications Pt fell off the running board of a truck sustaining this elbow fx and a Garden 3 right hip fx. Findings Grade 1 open fx as the hematoma from the joint did communicate with a 1 cm laceration in this area. Description of Procedure Having completed the hip procedure we now transitioned to the right elbow. The patient was sterilely prepped and draped. 3 L of lactated Ringer's was used initially to wash out the small laceration. With probing this appeared to be contiguous with the hematoma in the joint and therefore represents a grade 1 open fracture. Patient had received IV antibiotics since presenting in the emergency room. I then outlined a longitudinal incision along the subcutaneous border of the ulna and extending proximally for about 2 cm. This was taken through the skin with a 15 blade scalpel. The fracture was identified. The hematoma was removed from the joint. A L of antibiotic with bacitracin was used to further washout the fracture. Any periosteum that was impinging on the fracture edges was debrided. An anatomical reduction was then achieved and held with K-wires. Fluoroscopy was used throughout the case to check the reduction and the length of the screws. At this point the triceps fascia was opened and a pocket of fascia was performed to allow the plate to sit flush against the bone. We then placed the most proximal locking screw a 14 was chosen. We then compressed the fracture and placed a cortical screw distally drilling somewhat eccentric to help with compression. A good reduction was maintained. We then placed a drill down the home run screw hole and used a 46 malleolar screw on this. Once that was achieved we checked under fluoro and found that the fracture was appropriately reduced and maintained. I then drilled measured and placed appropriately sized cortical screws distally. Placed 1 more locking screw in the proximal fragment. The wound was then copiously irrigated again. the triceps Was closed over the plate. And the subcutaneous tissues were closed with 2 O Vicryl sutures. Three 0 Vicryl was used to close the subcutaneous tissues. Surgical christophe were used to close the skin. Fluoroscopy was used at the end of the procedure to confirm that the fracture had been maintained and a good reduction and fracture fixation was achieved. Implants Colby Locking olecranon plate Estimated Blood Loss 25 Tourniquet Time 45 Urine Output 250 Drains No Packing No Pathology none sent Complications None Condition stable Disposition PACU
--- NOTE | 2021-06-08 18:10 | PC.NURSE ---
Pt awake and alert, vital signs stable. Toño wrap to right elbow dry and intact. dressing to right hip dry and intact.
[2021-06-09 03:35] VITALS: BP 131/50; PULSE 66; RESP 18; TEMP 35.7; O2SAT 97
[2021-06-09] MEDS: MORPHINE SULFATE (*CRX) 4 MG/ML INJ IV PUSH ×2 (06:09→10:13)
[2021-06-09] MEDS: ONDANSETRON INJ 4 MG/2 ML VIAL IV PUSH ×2 (06:13→21:10)
[2021-06-09 06:33] LABS: Hemoglobin 10.1 g/dL (12.0-15.0); Mean Corpuscular HGB Conc 32.6 g/dl (32-36); Mean Corpuscular Hemoglobin 28.8 pg (26-34); Mean Corpuscular Volume 88.3 fl (80-100); Mean Platelet Volume 9.3 fl (7.4-10.4); Platelet Count Result 141 k/mm3 (150-375); Red Blood Count 3.51 M/mm3 (4.2-5.4); Red Cell Distribution Width 12.3 % (11.5-14.5); White Blood Count 10.4 K/mm3 (4.5-10.0)
[2021-06-09 06:53] LABS: Magnesium 1.7 mg/dL (1.6-2.3)
[2021-06-09] MEDS: oxyCODONE HCL (*CRX) 5 MG TAB IR PO (08:04)
[2021-06-09] MEDS: DOCUSATE SODIUM 100 MG CAPSULE PO (08:09)
--- NOTE | 2021-06-09 08:55 | P.PNIM_ITS ---
Progress Note: A&P Assessment and Plan (1) Fall: Code(s): W19.XXXA - Unspecified fall, initial encounter Status: Acute Assessment and Plan: * Fell from the running board of a truck while washing it * abrasion to the right arm, and limited range of motion to left leg * Right hip xray showed acute right subcapital femoral neck fracture * Right elbow xray showed olecranon fracture with significant retraction and angulation. * Ortho consult-thank you for your help * surgery scheduled for 06/08/21 * Morphine 4mg IV PRN for pain * SCDs * bedrest * Mechanical fall * PT OT (2) Closed displaced fracture of right femoral neck: Code(s): S72.001A - Fracture of unspecified part of neck of right femur, initial encounter for closed fracture Status: Acute Assessment and Plan: * status post hemiarthroplasty of the right hip * Right hip xray showed acute right subcapital femoral neck fracture * Ortho consulted * ortho to manage * pain management: Morphine 4mg IV Q4hr PRN, [place] 5/325 1 PO q4hr * Anti emetic Zofran 4mg IV Q4hr * DVT SCDs * Bowel regimen Colace 100mg PO BID * Bed rest * PT/OT * Weight bearing status: full weight bearing (3) Closed fracture of right olecranon process: Qualifiers: Encounter type: initial encounter Qualified Code(s): S52.021A - Displaced fracture of olecranon process without intraarticular extension of r ight ulna, initial encounter for closed fracture Code(s): S52.021A - Displaced fracture of olecranon process without intraarticular extension of right ulna, initial encounter for closed fracture Status: Acute Assessment and Plan: * Status post ORIF repair with screws * Right elbow xray showed olecranon fracture with significant retraction and angulation. * Ortho consulted thank you * ortho to manage * pain management: Morphine 4mg IV Q4hr PRN, [place] 5/325 1 PO q4hr * Anti emetic Zofran 4mg IV Q4hr * DVT SCDs * Bowel regimen Colace 100mg PO BID * Antibiotics 1 g of Ancef q.8 * Bed rest * PT/OT (4) Skin tear: Status: Acute Assessment and Plan: * STATUS POST SUTURING * LOCAL CARE (5) Osteoporosis: Code(s): M81.0 - Age-related osteoporosis without current pathological fracture Status: Acute Assessment and Plan: * Was on boniva for many years * PCP took her off and said she was on it long enough Subjective Date/time seen: 06/09/21 08:00 Interval history: Katia is a 80-year-old female with past medical history of osteoporosis who presented the ED after a fall. today patient is lying in bed and stating that she is in the lot of pain. She is eating breakfast and states that her pain is a lot in her shoulder and not so much as her hip and groin. She also stated that she does get nauseated with pain medicine however the Zofran is helping her with that. Patient denies chest pain, shortness of breath, vomiting, abdominal pain, lack of appetite, dizziness, headache, fatigue, weakness. I talked to Dr. cruz today who said that the patient can actually be DC probably Saturday if she has been up and about with PT and she says she is okay she is going to a short-term rehab. Today she was up with assist and she is doing well. Review of Systems Review of Systems: All systems reviewed & are unremarkable except as noted in HPI and below Exam Const: General: cooperative, healt
--- NOTE | 2021-06-09 08:55 | PM.IMPN ---
Progress Note: A&P Assessment and Plan (1) Fall: Code(s): W19.XXXA - Unspecified fall, initial encounter Status: Acute Assessment and Plan: Fell from the running board of a truck while washing it abrasion to the right arm, and limited range of motion to left leg Right hip xray showed acute right subcapital femoral neck fracture Right elbow xray showed olecranon fracture with significant retraction and angulation. Ortho consult-thank you for your help surgery scheduled for 06/08/21 Morphine 4mg IV PRN for pain SCDs bedrest Mechanical fall PT OT (2) Closed displaced fracture of right femoral neck: Code(s): S72.001A - Fracture of unspecified part of neck of right femur, initial encounter for closed fracture Status: Acute Assessment and Plan: status post hemiarthroplasty of the right hip Right hip xray showed acute right subcapital femoral neck fracture Ortho consulted ortho to manage pain management: Morphine 4mg IV Q4hr PRN, [place] 5/325 1 PO q4hr Anti emetic Zofran 4mg IV Q4hr DVT SCDs Bowel regimen Colace 100mg PO BID Bed rest PT/OT Weight bearing status: full weight bearing (3) Closed fracture of right olecranon process: Qualifiers: Encounter type: initial encounter Qualified Code(s): S52.021A - Displaced fracture of olecranon process without intraarticular extension of right ulna, initial encounter for closed fracture Code(s): S52.021A - Displaced fracture of olecranon process without intraarticular extension of right ulna, initial encounter for closed fracture Status: Acute Assessment and Plan: Status post ORIF repair with screws Right elbow xray showed olecranon fracture with significant retraction and angulation. Ortho consulted thank you ortho to manage pain management: Morphine 4mg IV Q4hr PRN, [place] 5/325 1 PO q4hr Anti emetic Zofran 4mg IV Q4hr DVT SCDs Bowel regimen Colace 100mg PO BID Antibiotics 1 g of Ancef q.8 Bed rest PT/OT (4) Skin tear: Status: Acute Assessment and Plan: STATUS POST SUTURING LOCAL CARE (5) Osteoporosis: Code(s): M81.0 - Age-related osteoporosis without current pathological fracture Status: Acute Assessment and Plan: Was on boniva for many years PCP took her off and said she was on it long enough Subjective Date/time seen: 06/09/21 08:00 Interval history: Katia is a 80-year-old female with past medical history of osteoporosis who presented the ED after a fall. today patient is lying in bed and stating that she is in the lot of pain. She is eating breakfast and states that her pain is a lot in her shoulder and not so much as her hip and groin. She also stated that she does get nauseated with pain medicine however the Zofran is helping her with that. Patient denies chest pain, shortness of breath, vomiting, abdominal pain, lack of appetite, dizziness, headache, fatigue, weakness. I talked to Dr. cruz today who said that the patient can actually be DC probably Saturday if she has been up and about with PT and she says she is okay she is going to a short-term rehab. Today she was up with assist and she is doing well. Review of Systems Review of Systems: All systems reviewed & are unremarkable except as noted in HPI and below Exam Const: General: cooperative, healthy appearing, no acute distress, well developed, alert, awake, Physically active, anxious and uncomfortable Nutritional Appearance: average body habitus, well nourished and thin Orientation/consciousness: oriented to person, oriented to place, oriented to time and patient oriented x3 Limitations: physical limitations HENMT: Head: normal to inspection, normocephalic and atraumatic Ears: hearing grossly normal bilaterally and external ears normal General nose exam: Normal external nose present, Normal nares present and Normal nasal mu
--- NOTE | 2021-06-09 09:12 | PM.PNORT ---
Progress Note: A&P Additional Plan Cont mobilization SNF planning cont medical supportive care OT to see Inspirex spirometry to bedside Use sequential while in bed start ASA 81 mg po q D for DVT proph Time Spent With Patient Time with patient: 15 - 25 minutes Subjective Subjective Date/Time Seen: 06/09/21 09:12 Exam Extrem: General: no pedal edema and no calf tenderness Left lower extremity: hip/thigh Details: other (incision C+D) Objective Data Vital Signs Vital Signs: Vital Signs - 24 hr 06/08/21 10:55 06/08/21 16:00 06/08/21 16:15 Temperature 36.1 C L 36.2 C L Pulse Rate 68 76 68 Respiratory Rate 20 16 Blood Pressure 132/55 L 152/89 H 184/75 H Pulse Oximetry 94 100 100 06/08/21 16:30 06/08/21 16:45 06/08/21 17:00 Temperature Pulse Rate 71 66 69 Respiratory Rate 14 10 L 13 Blood Pressure 154/99 H 156/66 H 152/61 H Pulse Oximetry 95 95 94 06/08/21 17:15 06/08/21 17:29 06/08/21 17:50 Temperature 36.5 C Pulse Rate 67 69 68 Respiratory Rate 16 16 18 Blood Pressure 135/56 L 148/66 H 142/56 H Pulse Oximetry 94 97 98 06/08/21 18:05 06/08/21 18:35 06/08/21 19:35 Temperature 36.4 C L 36.6 C 35.8 C L Pulse Rate 64 65 64 Respiratory Rate 16 18 16 Blood Pressure 138/52 L 130/56 L 135/49 L Pulse Oximetry 97 98 97 06/08/21 23:35 06/09/21 03:35 Temperature 36.1 C L 35.7 C L Pulse Rate 69 66 Respiratory Rate 16 18 Blood Pressure 127/52 L 131/50 L Pulse Oximetry 98 97 Intake/Output Intake/Output: Intake & Output 06/06/21 06/07/21 06/08/21 06/09/21 23:59 23:59 23:59 23:59 Intake Total 50 386 1890 300 Output Total 725 138 7501 Balance -350 -214 260 300 Meds/Results Medications: Active Medications Generic Name Dose Route Start Last Admin Trade Name Freq PRN Reason Stop Dose Admin Hydrocodone Bitart/Acetaminophen 1 tab 06/07/21 11:20 Hydrocodone/Acetaminophen (*Crx) 5-325 Mg Tablet PO Q4H PRN Pain Rated 4-6 Docusate Sodium 100 mg 06/07/21 14:10 06/09/21 08:09 Docusate Sodium 100 Mg Capsule PO 100 mg Q12H PRN Administration Constipation Morphine Sulfate 4 mg 06/06/21 19:54 06/09/21 06:09 Morphine Sulfate (*Crx) 4 Mg/Ml Inj IV PUSH 4 mg Q4H PRN Administration Pain Rated 7-10 Ondansetron HCl 4 mg 06/07/21 09:04 06/09/21 06:13 Ondansetron Inj 4 Mg/2 Ml Vial IV PUSH 4 mg Q6H PRN Administration Nausea And Vomiting Oxycodone HCl 5 mg 06/08/21 17:42 06/09/21 08:04 Oxycodone Hcl (*Crx) 5 Mg Tab Ir PO 5 mg ONCE PRN Administration Pain Rated 7-10 Radiology Results: ITS Impressions Elbow X-Ray 06/06/21 18:27 IMPRESSION: Right olecranon fracture with significant retraction and angulation. Intraoperative X-Ray 06/08/21 15:53 IMPRESSION: Fluoroscopy used during right olecranon ORIF. Hip X-Ray 06/08/21 16:42 IMPRESSION: 1. Bipolar type right hip hemiarthroplasty, negative for postoperative purposes. Labs Labs: Laboratory Results - last 24 hr 06/09/21 06/09/21 06:19 06:19 WBC 10.4 H RBC 3.51 L Hgb 10.1 L Hct 31.0 L MCV 88.3 MCH 28.8 MCHC 32.6 RDW 12.3 Plt Count 141 L MPV 9.3 Magnesium 1.7 Quality VTE Prophylaxis VTE prophylaxis: mechanical ordered (SCD)
[2021-06-09 09:14] LABS: Alanine Aminotransferase 16 U/L (4-35); Albumin Level 3.2 g/dL (3.5-5.1); Alkaline Phosphatase 41 U/L (38-126); Anion Gap 7 mmol/L (8-16); Aspartate Amino Transferase 27 U/L (14-36); Bilirubin,Total 0.6 mg/dL (0.2-1.3); Blood Urea Nitrogen 12 mg/dL (7-17); Calcium 8.1 mg/dL (8.4-10.2); Carbon Dioxide 22 mmol/L (22-30); Chloride 98 mmol/L (98-107); Estimated CRCL calculation 39 ml/min; Estimated Glomerular Filt Rate > 60; Glucose 101 mg/dL (65-110); Potassium 4.2 mmol/L (3.4-5.0); Sodium 127 mmol/L (137-145)
--- NOTE | 2021-06-09 11:31 | PC.NURSE ---
On 06/09/21, the student, [ Gila Barrios], provided care and completed [facility] documentation on this patient. I have reviewed the student's documentation and agree with the findings.
[2021-06-09 13:29] VITALS: BP 119/45; PULSE 68; RESP 18; TEMP 35.7; O2SAT 98
[2021-06-09] MEDS: HYDROcodone/acetaminophen (*CRX) 5-325 MG TABLET 1 TAB PO ×3 (13:40→21:48)
[2021-06-09 21:03] VITALS: BP 119/51; PULSE 71; RESP 16; TEMP 35.8; O2SAT 99
[2021-06-10] MEDS: HYDROcodone/acetaminophen (*CRX) 5-325 MG TABLET 1 TAB PO ×2 (03:54→08:38)
[2021-06-10 06:00] VITALS: BP 123/48; PULSE 72; RESP 18; TEMP 36.7; O2SAT 99
[2021-06-10] MEDS: ONDANSETRON INJ 4 MG/2 ML VIAL IV PUSH ×2 (06:14→15:35)
[2021-06-10 06:47] LABS: Hematocrit 30.4 % (37.0-47.0); Hemoglobin 9.9 g/dL (12.0-15.0); Mean Corpuscular HGB Conc 32.6 g/dl (32-36); Mean Corpuscular Hemoglobin 28.1 pg (26-34); Mean Corpuscular Volume 86.4 fl (80-100); Mean Platelet Volume 9.6 fl (7.4-10.4); Platelet Count Result 141 k/mm3 (150-375); Red Blood Count 3.52 M/mm3 (4.2-5.4); Red Cell Distribution Width 12.3 % (11.5-14.5); White Blood Count 10.6 K/mm3 (4.5-10.0)
[2021-06-10 07:00] LABS: Alanine Aminotransferase 26 U/L (4-35); Albumin Level 3.3 g/dL (3.5-5.1); Alkaline Phosphatase 55 U/L (38-126); Anion Gap 5 mmol/L (8-16); Aspartate Amino Transferase 64 U/L (14-36); Bilirubin,Total 0.6 mg/dL (0.2-1.3); Blood Urea Nitrogen 11 mg/dL (7-17); Calcium 8.2 mg/dL (8.4-10.2); Carbon Dioxide 24 mmol/L (22-30); Chloride 95 mmol/L (98-107); Estimated CRCL calculation 44 ml/min; Estimated Glomerular Filt Rate > 60; Glucose 107 mg/dL (65-110); Potassium 4.6 mmol/L (3.4-5.0); Sodium 124 mmol/L (137-145)
[2021-06-10 09:05] LABS: Creatinine Urine 38.6 mg/dL
[2021-06-10] MEDS: ASPIRIN 81 MG ENTERIC TABLET PO (09:06)
[2021-06-10] MEDS: SODIUM CHLORIDE 500 MG TABLET PO ×2 (09:06→18:23)
[2021-06-10 10:07] LABS: Sodium Urine Random < 5 meq/L
[2021-06-10] MEDS: DOCUSATE SODIUM 100 MG CAPSULE PO (12:31)
[2021-06-10 14:04] LABS: Free T4 Free Thyroxine Reflex 1.33 ng/dL (0.78-2.19)
--- NOTE | 2021-06-10 14:06 | P.PNIM_ITS ---
Progress Note: A&P Assessment and Plan (1) Hyponatremia: Code(s): E87.1 - Hypo-osmolality and hyponatremia Status: Acute Assessment and Plan: * sodium 133 on admission 06/06, then 130, 127, and 124 on subsequent days * TSH and cortisol normal * expected perioperative SIADH * however urine sodium is less than 5 suggesting an element of volume depletion * continue free water restriction and salt tablets with addition of IV saline for rapid correction of her acute perioperative hyponatremia * F/u lab (2) Fall: Qualifiers: Encounter type: sequela Qualified Code(s): W19.XXXS - Unspecified fall, sequela Code(s): W19.XXXA - Unspecified fall, initial encounter Status: Acute Assessment and Plan: * Fell from the running board of a truck while washing it * abrasion to the right arm, and limited range of motion to left leg * Right hip xray showed acute right subcapital femoral neck fracture * Right elbow xray showed olecranon fracture with significant retraction and angulation. * surgery completed 06/08/21 * To rehab when medically stable (3) Closed displaced fracture of right femoral neck: Code(s): S72.001A - Fracture of unspecified part of neck of right femur, initial encounter for closed fracture Status: Acute Assessment and Plan: * status post hemiarthroplasty of the right hip * PT/OT * Weight bearing status: full weight bearing (4) Closed fracture of right olecranon process: Qualifiers: Encounter type: initial encounter Qualified Code(s): S52.021A - Displaced fracture of olecranon process without intraarticular extension of right ulna, initial encounter for closed fracture Code(s): S52.021A - Displaced fracture of olecranon process without intraarticular extension of right ulna, initial encounter for closed fracture Status: Acute Assessment and Plan: * Status post ORIF repair with screws * Right elbow xray showed olecranon fracture with significant retraction and angulation. * PT/OT (5) Skin tear: Status: Acute Assessment and Plan: * STATUS POST SUTURING * LOCAL CARE (6) Osteoporosis: Qualifiers: Osteoporosis type: age-related Presence of current pathological fract ure: without current pathological fracture Qualified Code(s): M81.0 - Age- related osteoporosis without current pathological fracture Code(s): M81.0 - Age-related osteoporosis without current pathological fracture Status: Acute Assessment and Plan: * Was on boniva for many years * PCP took her off and said she was on it long enough Subjective Date/time seen: 06/10/21 14:06 Interval history: admitted June 06 with right hip fracture. Fall from truck running board. Right hip hemiarthroplasty June 08. June 10. Feels fine. Tolerating diet. Tolerating therapy. Appetite fair. Denied chest pain or shortness of breath or dizziness. Denied abdominal pain nausea vomiting. Denied bleeding from the bowels or urinary tract. Denied dysuria. Denied weakness or numbness. Review of Systems Review of Systems: All systems reviewed & are unremarkable except as noted in HPI and below Exam Narrative: Exam Narrative: HEENT: EOMI, PERRL, sclerae nonicteric, pharyngeal mucosa pink and intact NECK: No JVD, adenopathy, or thyromegaly CHEST: Clear to auscultation. Normal effort. HEART: NL S1/
--- NOTE | 2021-06-10 14:06 | PM.IMPN ---
Progress Note: A&P Assessment and Plan (1) Hyponatremia: Code(s): E87.1 - Hypo-osmolality and hyponatremia Status: Acute Assessment and Plan: sodium 133 on admission 06/06, then 130, 127, and 124 on subsequent days TSH and cortisol normal expected perioperative SIADH however urine sodium is less than 5 suggesting an element of volume depletion continue free water restriction and salt tablets with addition of IV saline for rapid correction of her acute perioperative hyponatremia F/u lab (2) Fall: Qualifiers: Encounter type: sequela Qualified Code(s): W19.XXXS - Unspecified fall, sequela Code(s): W19.XXXA - Unspecified fall, initial encounter Status: Acute Assessment and Plan: Fell from the running board of a truck while washing it abrasion to the right arm, and limited range of motion to left leg Right hip xray showed acute right subcapital femoral neck fracture Right elbow xray showed olecranon fracture with significant retraction and angulation. surgery completed 06/08/21 To rehab when medically stable (3) Closed displaced fracture of right femoral neck: Code(s): S72.001A - Fracture of unspecified part of neck of right femur, initial encounter for closed fracture Status: Acute Assessment and Plan: status post hemiarthroplasty of the right hip PT/OT Weight bearing status: full weight bearing (4) Closed fracture of right olecranon process: Qualifiers: Encounter type: initial encounter Qualified Code(s): S52.021A - Displaced fracture of olecranon process without intraarticular extension of right ulna, initial encounter for closed fracture Code(s): S52.021A - Displaced fracture of olecranon process without intraarticular extension of right ulna, initial encounter for closed fracture Status: Acute Assessment and Plan: Status post ORIF repair with screws Right elbow xray showed olecranon fracture with significant retraction and angulation. PT/OT (5) Skin tear: Status: Acute Assessment and Plan: STATUS POST SUTURING LOCAL CARE (6) Osteoporosis: Qualifiers: Osteoporosis type: age-related Presence of current pathological fracture: without current pathological fracture Qualified Code(s): M81.0 - Age-related osteoporosis without current pathological fracture Code(s): M81.0 - Age-related osteoporosis without current pathological fracture Status: Acute Assessment and Plan: Was on boniva for many years PCP took her off and said she was on it long enough Subjective Date/time seen: 06/10/21 14:06 Interval history: admitted June 06 with right hip fracture. Fall from truck running board. Right hip hemiarthroplasty June 08. June 10. Feels fine. Tolerating diet. Tolerating therapy. Appetite fair. Denied chest pain or shortness of breath or dizziness. Denied abdominal pain nausea vomiting. Denied bleeding from the bowels or urinary tract. Denied dysuria. Denied weakness or numbness. Review of Systems Review of Systems: All systems reviewed & are unremarkable except as noted in HPI and below Exam Narrative: Exam Narrative: HEENT: EOMI, PERRL, sclerae nonicteric, pharyngeal mucosa pink and intact NECK: No JVD, adenopathy, or thyromegaly CHEST: Clear to auscultation. Normal effort. HEART: NL S1/S2, regular, no murmur ABDOMEN: BS+, soft, nontender, no mass, no bruits EXTREMITIES: No cyanosis, edema, or clubbing NEUROLOGIC: CN intact and symmetric to inspection. MUSCULOSKELETAL: Tone and strength symmetric. PSYCH: Alert. Oriented to person, place, and time. Objective Data Vital Signs Vital Signs: Vital Signs - 24 hr 06/09/21 21:03 06/10/21 06:00 Temperature 96.5 F L 98.1 F Pulse Rate 71 72 Respiratory Rate 16 18 Blood Pressure 119/51 L 123/48 L Pulse Oximetry 99 99 Intake/Output In
[2021-06-10] MEDS: DEXTROSE 5%/0.9% SOD CHL 1,000 ML 75 ML IV CONT (14:21)
[2021-06-10 14:58] LABS: Total Triiodothyronine (T3) 0.87 NG/ML (0.97-1.69)
[2021-06-10 15:22] VITALS: BP 141/65; PULSE 85; RESP 20; TEMP 36.3; O2SAT 98
[2021-06-10 20:08] VITALS: BP 139/50; PULSE 77; RESP 16; TEMP 35.7; O2SAT 100
[2021-06-11 06:00] VITALS: BP 139/50; PULSE 74; RESP 16; TEMP 37.6; O2SAT 99
[2021-06-11] MEDS: HYDROcodone/acetaminophen (*CRX) 5-325 MG TABLET 1 TAB PO ×3 (06:39→16:25)
[2021-06-11] MEDS: DOCUSATE SODIUM 100 MG CAPSULE PO (08:40)
[2021-06-11] MEDS: ASPIRIN 81 MG ENTERIC TABLET PO (08:40)
[2021-06-11] MEDS: SODIUM CHLORIDE 500 MG TABLET PO (08:40)
--- NOTE | 2021-06-11 10:51 | P.DS_ITS ---
DS: Admitting Diagnosis Admitting Diagnosis right hip fracture DS: Discharge Diagnosis Discharge Diagnosis (1) Hyponatremia: Code(s): E87.1 - Hypo-osmolality and hyponatremia Status: Acute Assessment and Plan: * sodium 133 on admission 06/06, then 130, 127, and 124 on subsequent days, 131 on 06/11 * TSH and cortisol normal * expected perioperative SIADH * however urine sodium is less than 5 suggesting an element of volume depletion * continued free water restriction and salt tablets with addition of IV saline overnight 06/10 for rapid correction of her acute perioperative hyponatremia * 06/11 Na 131, stable for discharge (2) Fall: Qualifiers: Encounter type: sequela Qualified Code(s): W19.XXXS - Unspecified fall, sequela Code(s): W19.XXXA - Unspecified fall, initial encounter Status: Acute Assessment and Plan: * Fell from the running board of a truck while washing it * abrasion to the right arm, and limited range of motion to left leg * Right hip xray showed acute right subcapital femoral neck fracture * Right elbow xray showed olecranon fracture with significant retraction and angulation. * Surgery completed 06/08/21 * To rehab when medically stable (3) Closed displaced fracture of right femoral neck: Code(s): S72.001A - Fracture of unspecified part of neck of right femur, initial encounter for closed fracture Status: Acute Assessment and Plan: * status post hemiarthroplasty of the right hip 06/08/21 * PT/OT * Weight bearing status: full weight bearing (4) Closed fracture of right olecranon process: Qualifiers: Encounter type: initial encounter Qualified Code(s): S52.021A - Displaced fracture of olecranon process without intraarticular extension of right ulna, initial encounter for closed fracture Code(s): S52.021A - Displaced fracture of olecranon process without intraarticular extension of right ulna, initial encounter for closed fracture Status: Acute Assessment and Plan: * Status post ORIF 06/08/21 * Right elbow xray showed olecranon fracture with significant retraction and angulation. * PT/OT (5) Skin tear: Status: Acute Assessment and Plan: * STATUS POST SUTURING * LOCAL CARE (6) Osteoporosis: Qualifiers: Osteoporosis type: age-related Presence of current pathological fracture: without current pathological fracture Qualified Code(s): M81.0 - Age- related osteoporosis without current pathological fracture Code(s): M81.0 - Age-related osteoporosis without current pathological fracture Status: Acute Assessment and Plan: * Was on boniva for many years * D/c'ed due to time limitations for therapy DS: Summary Hospital Course Reason for hospitalization: fracture right olecranon and right hip Hospital Course: 80-year-old female was standing on the running board of a truck wash in the truck when she slipped and fell landing on her right side. She sustained fractures to the right olecranon and right hip on . On 06/08 she underwent open reduction and fixation of the right olecranon fracture and right hip hemiarthroplasty. Perioperative course was complicated by hyponatremia that was addressed with IV saline salt tablets and fluid re striction. Sodium improved from a low of 124 to 131 on 06/11. She was tolerating physical therapy and appetite was improving. She was accepted at [facility]
--- NOTE | 2021-06-11 10:51 | PM.DS ---
DS: Admitting Diagnosis Admitting Diagnosis right hip fracture DS: Discharge Diagnosis Discharge Diagnosis (1) Hyponatremia: Code(s): E87.1 - Hypo-osmolality and hyponatremia Status: Acute Assessment and Plan: sodium 133 on admission 06/06, then 130, 127, and 124 on subsequent days, 131 on 06/11 TSH and cortisol normal expected perioperative SIADH however urine sodium is less than 5 suggesting an element of volume depletion continued free water restriction and salt tablets with addition of IV saline overnight 06/10 for rapid correction of her acute perioperative hyponatremia 06/11 Na 131, stable for discharge (2) Fall: Qualifiers: Encounter type: sequela Qualified Code(s): W19.XXXS - Unspecified fall, sequela Code(s): W19.XXXA - Unspecified fall, initial encounter Status: Acute Assessment and Plan: Fell from the running board of a truck while washing it abrasion to the right arm, and limited range of motion to left leg Right hip xray showed acute right subcapital femoral neck fracture Right elbow xray showed olecranon fracture with significant retraction and angulation. Surgery completed 06/08/21 To rehab when medically stable (3) Closed displaced fracture of right femoral neck: Code(s): S72.001A - Fracture of unspecified part of neck of right femur, initial encounter for closed fracture Status: Acute Assessment and Plan: status post hemiarthroplasty of the right hip 06/08/21 PT/OT Weight bearing status: full weight bearing (4) Closed fracture of right olecranon process: Qualifiers: Encounter type: initial encounter Qualified Code(s): S52.021A - Displaced fracture of olecranon process without intraarticular extension of right ulna, initial encounter for closed fracture Code(s): S52.021A - Displaced fracture of olecranon process without intraarticular extension of right ulna, initial encounter for closed fracture Status: Acute Assessment and Plan: Status post ORIF 06/08/21 Right elbow xray showed olecranon fracture with significant retraction and angulation. PT/OT (5) Skin tear: Status: Acute Assessment and Plan: STATUS POST SUTURING LOCAL CARE (6) Osteoporosis: Qualifiers: Osteoporosis type: age-related Presence of current pathological fracture: without current pathological fracture Qualified Code(s): M81.0 - Age-related osteoporosis without current pathological fracture Code(s): M81.0 - Age-related osteoporosis without current pathological fracture Status: Acute Assessment and Plan: Was on boniva for many years D/c'ed due to time limitations for therapy DS: Summary Hospital Course Reason for hospitalization: fracture right olecranon and right hip Hospital Course: 80-year-old female was standing on the running board of a truck wash in the truck when she slipped and fell landing on her right side. She sustained fractures to the right olecranon and right hip on . On 06/08 she underwent open reduction and fixation of the right olecranon fracture and right hip hemiarthroplasty. Perioperative course was complicated by hyponatremia that was addressed with IV saline salt tablets and fluid restriction. Sodium improved from a low of 124 to 131 on 06/11. She was tolerating physical therapy and appetite was improving. She was accepted at [facility] for postoperative rehabilitation. Status at Discharge Functional status at discharge: uses cane/walker Overall status at discharge: patient is not back to baseline Time Spent with Patient Time attestation: Total time spent providing and/or coordinating discharge services: Time spent: Greater than 30 minutes Exam Narrative: Exam Narrative: HEENT: EOMI, PERRL, sclerae nonicteric, pharyngeal mucosa pink and intact NECK: No JVD, adeno
[2021-06-11 11:26] LABS: Anion Gap 6 mmol/L (8-16); Blood Urea Nitrogen 7 mg/dL (7-17); Calcium 8.2 mg/dL (8.4-10.2); Carbon Dioxide 23 mmol/L (22-30); Chloride 102 mmol/L (98-107); Estimated CRCL calculation 60 ml/min; Estimated Glomerular Filt Rate > 60; Glucose 113 mg/dL (65-110); Sodium 131 mmol/L (137-145)
[2021-06-11 14:00] VITALS: BP 126/42; PULSE 78; RESP 20; TEMP 37.2; O2SAT 99
--- NOTE | 2021-06-12 14:59 | PC.NURSE ---
Called [facility] and spoke with nurse caring for patient. Had not received antibiotic order. Gave them Dr. Mello's order for Keflex 500 mg po every 8 hours, #21. States agreement and understanding.
== END 2021-06-11 16:30 | DRG 956 ==
LOC: ANHED 20:47 → ANH3MED 06-07 00:58
PROVIDERS: Internal Medicine; Specialist; Admitting Provider Internal Medicine; Emergency Provider Emergency Medicine; PCP Family Medicine; Visit Provider Nurse Practitioner
PROC: 0PSK04Z Reposition Right Ulna with Internal Fixation Device, Open Approach (ICD-10-PCS; CPT 27125; principal; 2021-06-08 11:30)
PROC: 0PSK04Z Reposition Right Ulna with Internal Fixation Device, Open Approach (ICD-10-PCS; 2021-06-08 11:30)
DX: S72.011A Unspecified intracapsular fracture of right femur, initial encounter for closed fracture (principal); S52.021B Displaced fracture of olecranon process without intraarticular extension of right ulna, initial encounter for open fracture type I or II; E87.1 Hypo-osmolality and hyponatremia; S40.811A Abrasion of right upper arm, initial encounter; W17.89XA Other fall from one level to another, initial encounter; M81.0 Age-related osteoporosis without current pathological fracture
CPT/HCPCS: 36415; 73070; 73502; 80048; 80053; 82533; 82570; 83735; 84300; 84439; 84443; 84480; 85025; 85027; 85610; 85730; 90471; 90715; 94640; 96374; 97110; 97116; 97161; 97165; 97530; 97535; 99285; A4565; A9270; C1713; C1776; J0171; J0690; J1100; J1650; J1885; J2270; J2405; J2704; J2710; J2795; J3010; J7030; J7042; J7120

== ENCOUNTER 2022-10-09 09:21 | Outpatient (CLI) | payer MEDICARE, SELFPAY ==
--- NOTE | ~2022-10-09 | DEXA_ITS ---
Bone Density Report Name: RYANN GARCIA Age: 82 Sex: Female Ethnicity: White Date of : 1940 Indication: postmenopausal osteoporosis; height loss; prior fracture; Referring Provider: ENE PARRA Study: Bone densitometry was performed. Exam Date: October 09, 2022 Accession number: [id number] Bone Density: Region BMD T-score Z-score Classification AP Spine(L1-L4) 0.726 -2.9 -0.2 Osteoporosis Femoral Neck (Left) 0.525 -2.9 -0.6 Osteoporosis Total Hip (Left) 0.622 -2.6 -0.5 Osteoporosis World Health Organization criteria for BMD impression classify patients as: Normal (T-score at or above -1.0), Osteopenia (T-score between -1.0 and -2.5), or Osteoporosis (T-score at or below -2.5). 10-year Fracture Risk: FRAX not reported because: Some T-score for Spine Total or Hip Total or Femoral Neck at or below -2.5 Prior hip or vertebral fracture Previous Exams: Region Exam Age BMD T-score BMD Change BMD Change Date g/cm2 vs Baseline vs Previous AP Spine (L1-L4) 10/09/2022 82 0.726 -2.9 -0.002 (-0.2%) -0.008 (-1.1%) 05/09/2020 79 0.734 -2.8 0.006 (0.9%) 0.016 (2.2%) 09/25/2016 76 0.718 -3.0 -0.009 (-1.3%) -0.009 (-1.3%) 09/23/2014 74 0.728 -2.9 Total Hip(Left) 10/09/2022 82 0.622 -2.6 -0.090 (-12.7% -0.039 (-5.8%) 05/09/2020 79 0.661 -2.3 -0.052 (-7.2%) -0.012 (-1.8%) 09/25/2016 76 0.673 -2.2 -0.040 (-5.6%) -0.040 (-5.6%) 09/23/2014 74 0.713 -1.9 *Denotes significance at 95% confidence level, LSC for AP Spine = 0.022 g/cm2, LSC for Total Hip = 0.027 g/cm2 Clinical Information Provided by Patient: Have had a previous hip or vertebral fracture Has had a low trauma fracture Has used the following medications: Vitamin D, Calcium Patient maximum height was 64 Menopause Age: 52 Drinks caffeinated beverages Onset of menses at age 14 Number of children 2 Impression: The patient has established osteoporosis, based on the Total Spine T-score and the existence of a prior fracture. The patient has risk factors, including: previous fracture. The BMD for the Total Hip(Left) decreased, changing by -5.8% since the last DXA exam. Discussion: HIGH RISK OF FRACTURE. BONE DENSITY IS UNDESIRABLY LOW AT ONE OR MORE SKELETAL SITES, CONSISTENT WITH POSTMENOPAUSAL OSTEOPOROSIS. This patient's lowest T-score, in a patient who has previously fractured, meets the World Health Organization's (WHO) criteria for severe osteoporosis. In untreated patients, the risk of osteoporotic fracture increases
== END 2022-10-09 09:22 | disposition home or self-care (01) ==
PROVIDERS: PCP Family Medicine; Visit Provider Physician Assistant
DX: Z78.0 Asymptomatic menopausal state (principal); M81.0 Age-related osteoporosis without current pathological fracture
CPT/HCPCS: 77080

== ENCOUNTER 2023-03-06 12:26 | Outpatient (CLI) | payer MEDICARE, SELFPAY ==
--- NOTE | 2023-03-06 12:50 | ECHO_ITS ---
Patient Info Name: Katia Sheth Age: 82 years : 1940 Gender: Female Ht: 61 in Wt: 115 lbs BSA: 1.50 m2 HR: 78 bpm BP: 134 / 87 mmHg Heart Rhythm: Atrial Fibrillation Technical Quality: Good Exam Date: 03/06/2023 12:59 PM Exam Location: [facility] Pulmonary Patient Status: Outpatient Admit Date: 03/06/2023 Staff Ordering Physician: Mari Handy Researcher: Anna Viveros RDCS Attending Provider: Mari Handy Referring Physician: Rozina HERNANDEZ; Exam Type: CA echo doppler color flow Study Info Indications - ATRIAL FIB Complete two-dimensional, color flow and Doppler transthoracic echocardiogram is performed. Summary 1. Complete two-dimensional, color flow and Doppler transthoracic echocardiogram is performed. 2. Left ventricular chamber dimension is normal. 3. Left ventricular systolic function is normal, estimated at 60-65%. 4. There is moderately increased left ventricular wall thickness. 5. Right ventricular chamber dimension is severely enlarged. 6. Right ventricular systolic function is reduced. 7. Flattening of the septum in diastole and systole consistent with right ventricular volume and pressure overload. 8. Left atrial chamber dimension is severely enlarged. 9. Right atrial chamber dimension is severely enlarged. 10. Atrial septal defect visualized by color flow imaging. The ASD measures approximately 1.46cm on subcostal imaging. There is a large left to right shunt by color flow imaging. 11. There is mild mitral valve regurgitation. 12. There is moderate tricuspid valve regurgitation. 13. Dilated inferior vena cava with <50% collapse upon inspiration consistent with elevated right atrial pressure, 15 mmHg. 14. There is trivial circumferential pericardial effusion. 15. Estimated pulmonary arterial systolic pressure is 51 mmHg. Left Ventricle Left ventricular chamber dimension is normal. Left ventricular systolic function is normal, estimated at 60-65%. There is moderately increased left ventricular wall thickness. Left ventricular septal wall motion is abnormal with septal motion related to bundle branch block. Right Ventricle Flattening of the septum in diastole and systole consistent with right ventricular volume and pressure overload. Right ventricular chamber dimension is severely enlarged. Right ventricular systolic function is reduced. Left Atria Left atrial chamber dimension is severely enlarged. Right Atria Right atrial chamber dimension is severely enlarged. Atrial Septum Atrial septal defect visualized by color flow imaging. The ASD measures approximately 1.46cm on subcostal imaging. There is a large left to right shunt by color flow imaging. Aortic Valve The aortic valve is trileaflet. There is mild aortic valve sclerosis. There is no aortic valve stenosis. There is no aortic valve regurgitation. Pulmonic Valve The pulmonic valve is normal. There is trace pulmonic regurgitation. Mitral Valve There is mild mitral valve regurgitation. Tricuspid Valve There is moderate tricuspid valve regurgitation. Estimated pulmonary arterial systolic pressure is 51 mmHg. Pericardium/Pleural There is trivial circumferential pericardial effusion. Inferior Vena Cava Dilated inferior vena cava with <50% collapse upon inspiration consistent with elevated right atrial pressure, 15 mmHg. Aorta The aortic root size at the sinus of Valsalva is normal. Left Ventricular Outflow Tract
== END 2023-03-06 12:27 | disposition home or self-care (01) ==
PROVIDERS: PCP Family Medicine; Visit Provider Physician Assistant Medical
DX: I48.91 Unspecified atrial fibrillation (principal); I34.0 Nonrheumatic mitral (valve) insufficiency; I36.1 Nonrheumatic tricuspid (valve) insufficiency
CPT/HCPCS: 93306

== ENCOUNTER 2023-03-11 01:19 | Day surgery (SDC) | payer MEDICARE, SELFPAY ==
[2023-03-08 15:17] VITALS: BMI 21.7
[2023-03-11] VITALS (13 sets, daily range): BP systolic 113–166; BP diastolic 72–102; PULSE 71–90; RESP 14–20; TEMP 36.5; O2SAT 95–100; BMI 21.8
--- NOTE | 2023-03-11 08:30 | ECG_ITS ---
Measurements Intervals [place] Rate: 79 P: [place]: 0 QRS: 93 QRSD: 97 T: -70 QT: 385 QTc: 444 Interpretive Statements ATRIAL FIBRILLATION BORDERLINE RIGHT AXIS DEVIATION [QRS AXIS > 90] PATTERN CONSISTENT WITH PULMONARY DISEASE INCOMPLETE RIGHT BUNDLE BRANCH BLOCK [90+ ms QRS DURATION, TERMINAL R IN V1/V2, 40+ ms S IN I/aVL/V4/V5/V6] ST DEVIATION AND MODERATE T-WAVE ABNORMALITY, CONSIDER LATERAL ISCHEMIA [-0.1+ mV T WAVE IN I/aVL/V5/V6] ABNORMAL ECG NO PREVIOUS ECG AVAILABLE FOR COMPARISON Electronically Signed On 03-11-2023 11:56:28 CDT by Edmundo Douglas M.D.
[2023-03-11 09:00] LABS: Anion Gap 5 mmol/L (8-16); Blood Urea Nitrogen 19 mg/dL (7-17); Carbon Dioxide 28 mmol/L (22-30); Chloride 103 mmol/L (98-107); Estimated CRCL calculation 32 ml/min; Estimated Glomerular Filt Rate 60; Glucose 111 mg/dL (65-110); Potassium 4.2 mmol/L (3.4-5.0); Sodium 136 mmol/L (137-145)
--- NOTE | 2023-03-11 10:07 | WPDMODSED ---
Moderate Sedation Note-Pt Data Patient Data Diagnosis: Atrial fibrillation, ASD Present Complaint: Atrial fibrillation, AST Procedure to be performed/Plan: 1. Multiplanar transesophageal echocardiography with color-flow pulse-wave Doppler 2. Moderate sedation 3. Electrical cardioversion Allergies Allergy/AdvReac Type Severity Reaction Status Date / Time Sulfa (Sulfonamide Allergy Mild Rash Verified 03/11/23 08:25 Antibiotics) Home Medications Medication Instructions Recorded Confirmed Type calcium citrate 250 mg 1 tablet PO BID 08/02/21 03/11/23 History calcium-vitamin D3 5 mcg (200 unit) tablet (Citracal Regular) msrwcgnfwdfc-mxsjyekw-uqkrcyw-folic 1 tablet PO DAILY 08/02/21 03/11/23 History acid 400 mcg-vit K1 20 mcg tablet (One-A-Day Women's 50 Plus) flaxseed oil 1,000 mg capsule 1,000 mg PO DAILY 09/19/22 03/11/23 History apixaban 2.5 mg tablet (Eliquis) 2.5 mg PO BID 02/13/23 03/11/23 History metoprolol tartrate 25 mg tablet 25 mg PO BID 02/13/23 03/11/23 History Current Medications: Active Medications Sodium Chloride (Normal Saline Iv) 500 mls @ 100 mls/hr IV CONT .Q5H FINA Sedation/Anesthesia: No previous sedation/anesthesia problems (including family history). [facility]LY [facility] Past Medical History Medical History Born by normal vaginal delivery Osteoporosis Surgical History Surgical History History of hemiarthroplasty of right hip History of lumpectomy of right breast History of tonsillectomy History of tubal ligation [place] teeth removed Family History Family History Mother Family history of lung cancer Sibling Acute myocardial infarction Father Family history of Alzheimer's disease Sibling Brain cancer Social History Social History Smoking status: Never smoker Second hand tobacco smoke exposure: Yes Alcohol intake: never Substance use: never Substance use type: does not use Lack of Transportation: No Lack of Food: Never True Current Housing: I Have Housing Concerned About Future Housing: No Difficulty Paying Gas/Electric Bills: No Difficulty Paying for Meds: No Currently Unemployed: No Education: Associate Degree Difficulty w/ Childcare or Family Care: No Living arrangements: alone Occupation/Education: retired Gender identity (if verbalized by the patient): Female Spiritual care concerns: No Agree to blood products: Yes Mod Sed Physical Exam Physical Exam Pre Procedural Exam: Normal: Appearance, Eyes, Ears, Nose, Neck, Throat, Airway, Lungs, Heart Size, Heart Rate, Neuro Exam, Abdomen, Extremities and Skin and Variation: Heart Rhythm (Irregular irregular) Hours since solid foods: 12 Hours since liquid intake: 12 Mallampati Classification: class II Internal Medicine - PN: Obj Da Vital Signs Vital Signs: Vital Signs - 24 hr 03/11/23 08:40 03/11/23 09:58 Temperature 36.5 C Pulse Rate 78 79 Respiratory Rate 14 14 Blood Pressure 128/82 Pulse Oximetry 100 100 Oxygen Delivery Room Air Nasal Cannula Oxygen Flow Rate 3 Meds/Results Medications: Active Medications Generic Name Dose Route Start Last Admin Trade Name Freq PRN Reason Stop Dose Admin Sodium Chloride 500 mls @ 100 mls/hr 03/11/23 08:30 Normal Saline Iv IV CONT .Q5H FINA Labs 03/11/23 08:21 Labs: Laboratory Results - last 24 hr 03/11/23 08:21 Sodium 136 L Potassium 4.2 Chloride 103 Carbon Dioxide 28 Anion Gap 5 L BUN 19 H D Creatinine 0.90 Estim Creat Clear Calc 32 Estimated GFR 60 Glucose 111 H Calcium 9.0 Magnesium 2.0 ASA Classification/Sedation ASA Classification/Sedation ASA Class: II Emergent: No Risks: Risks, benefits and alternatives exp
--- NOTE | 2023-03-11 10:20 | WPDTECDV ---
YANETH with Cardioversion Date of procedure: 03/11/23 Procedure Type: 1. Plan for multiplanar transesophageal echocardiogram with color flow and pulse wave Doppler 2. Plan for electrical cardioversion 3. Moderate sedation Diagnosis: Atrial fibrillation, ASD Indications: Atrial fibrillation, ASD Description of Procedure: After discussing the risks, benefits alternatives to the procedure patient agreeable via verbal and written informed consent. Risks discussed included stroke, shock into more problematic heart rhythm, esophageal rupture perforation, , and skin irritation or burn, bleeding, pain, infection. After time-out was taken following establishing continuous telemetry monitoring, pulse ox in a haque and serial blood pressure assessments, the procedure was started Procedure start time 10:11 a.m. Procedure stop time 10:18 a.m. A total 2 mg of Versed and 25 mcg of fentanyl were given in divided dosages for anesthesia as well as Hurricaine spray to the hypopharynx x2 for topical anesthetic. Patient was monitored and medications were provided by Edith tao RN Blood loss: None Complications: None Attempts were made at esophageal intubation. Patient had difficulty in swallowing the probe and patient was unable to follow instructions also. Ultimately esophageal intubation was not performed and procedure was aborted. Sedation: As detailed above Findings: Attempted YANETH but unable to pass probe into the esophagus as detailed above. Procedure was aborted. Moderate sedation was provided Conclusion: 1. Moderate sedation 2. Attempted YANETH Plan: Continue anticoagulation will perform outpatient elective cardioversion only in a couple of weeks. Patient also has an ASD. Will [facility] for further workup evaluation treatment.
== END 2023-03-11 12:50 | disposition home or self-care (01) ==
PROVIDERS: PCP Family Medicine; Visit Provider Internal Medicine Cardiovascular Disease
PROC: (CPT 93312; principal; 2023-03-11 10:00)
DX: I48.91 Unspecified atrial fibrillation (principal); Z79.01 Long term (current) use of anticoagulants; Z53.8 Procedure and treatment not carried out for other reasons
CPT/HCPCS: 36415; 80048; 83735; 93005; 93312; 93320; 93325; J2250; J2310; J3010; J7040

== ENCOUNTER 2023-04-01 01:25 | Day surgery (SDC) | payer MEDICARE, SELFPAY ==
[2023-03-29 14:59] VITALS: BMI 21.0
[2023-04-01] VITALS (13 sets, daily range): BP systolic 117–152; BP diastolic 58–94; PULSE 38–77; RESP 16–22; TEMP 36.6; O2SAT 96–100; BMI 22.6
--- NOTE | 2023-04-01 07:00 | ECG_ITS ---
Measurements Intervals [place] Rate: 71 P: [place]: 0 QRS: 134 QRSD: 109 T: -35 QT: 417 QTc: 456 Interpretive Statements ATRIAL FIBRILLATION INCOMPLETE RIGHT BUNDLE BRANCH BLOCK DELAYED PRECORDIAL R/S TRANSITION BORDERLINE ST-T WAVE ABNORMALITY- DIFFUSE LEADS ABNORMAL ECG COMPARED TO ECG 03/11/2023 08:22:54 NO SIGNIFICANT CHANGES Electronically Signed On 04-01-2023 7:43:15 CDT by Scout Boles D.O.
[2023-04-01 07:38] LABS: Anion Gap 9 mmol/L (8-16); Blood Urea Nitrogen 15 mg/dL (7-17); Calcium 8.8 mg/dL (8.4-10.2); Carbon Dioxide 23 mmol/L (22-30); Chloride 100 mmol/L (98-107); Estimated CRCL calculation 32 ml/min; Estimated Glomerular Filt Rate 60; Glucose 105 mg/dL (65-110); Magnesium 2.1 mg/dL (1.6-2.3); Potassium 4.4 mmol/L (3.4-5.0); Sodium 132 mmol/L (137-145)
--- NOTE | 2023-04-01 08:43 | WPDMODSED ---
Moderate Sedation Note-Pt Data Patient Data Diagnosis: atrial fibrillation Present Complaint: atrial fibrillation Procedure to be performed/Plan: moderate sedation Elective electrical cardioversion Allergies Allergy/AdvReac Type Severity Reaction Status Date / Time Sulfa (Sulfonamide Allergy Mild Rash Verified 04/01/23 07:21 Antibiotics) Home Medications Medication Instructions Recorded Confirmed Type calcium citrate 250 mg 1 tablet PO BID 08/02/21 03/29/23 History calcium-vitamin D3 5 mcg (200 unit) tablet (Citracal Regular) lizkpmkjfabg-rgdtouxj-rprpmlc-folic 1 tablet PO DAILY 08/02/21 03/29/23 History acid 400 mcg-vit K1 20 mcg tablet (One-A-Day Women's 50 Plus) flaxseed oil 1,000 mg capsule 1,000 mg PO DAILY 09/19/22 03/29/23 History metoprolol tartrate 25 mg tablet 25 mg PO BID 02/13/23 03/29/23 History apixaban 2.5 mg tablet (Eliquis) 2.5 mg PO BID 90 days #180 tabs 03/11/23 03/29/23 Rx amiodarone 200 mg tablet 200 mg PO BID 03/29/23 03/29/23 History Current Medications: Active Medications Sodium Chloride (Normal Saline Iv) 1,000 mls @ 30 mls/hr IV CONT .Q24H FINA Sedation/Anesthesia: No previous sedation/anesthesia problems (including family history). [facility] Past Medical History Medical History Born by normal vaginal delivery Osteoporosis Surgical History Surgical History History of hemiarthroplasty of right hip History of lumpectomy of right breast History of tonsillectomy History of tubal ligation [place] teeth removed Family History Family History Mother Family history of lung cancer Sibling Acute myocardial infarction Father Family history of Alzheimer's disease Sibling Brain cancer Social History Social History Smoking status: Never smoker Second hand tobacco smoke exposure: Yes Alcohol intake: never Substance use: never Substance use type: does not use Lack of Transportation: No Lack of Food: Never True Current Housing: I Have Housing Concerned About Future Housing: No Difficulty Paying Gas/Electric Bills: No Difficulty Paying for Meds: No Currently Unemployed: No Education: Associate Degree Difficulty w/ Childcare or Family Care: No Living arrangements: alone Occupation/Education: retired Gender identity (if verbalized by the patient): Female Spiritual care concerns: No Agree to blood products: Yes Mod Sed Physical Exam Physical Exam Pre Procedural Exam: Normal: Appearance, Eyes, Ears, Nose, Neck, Throat, Airway, Lungs, Heart Size, Heart Rate, Neuro Exam, Extremities and Skin and Variation: Heart Rhythm ( irregular irregular) Hours since solid foods: 12 Hours since liquid intake: 12 Mallampati Classification: class II Internal Medicine - PN: Obj Da Vital Signs Vital Signs: Vital Signs - 24 hr 04/01/23 07:23 04/01/23 08:40 Temperature 36.6 C Pulse Rate 77 64 Respiratory Rate 21 H 18 Blood Pressure 146/94 H 139/88 Pulse Oximetry 97 97 Oxygen Delivery Room Air Room Air Meds/Results Medications: Active Medications Generic Name Dose Route Start Last Admin Trade Name Freq PRN Reason Stop Dose Admin Sodium Chloride 1,000 mls @ 30 mls/hr 04/01/23 07:00 Normal Saline Iv IV CONT .Q24H FINA Labs 04/01/23 07:14 Labs: Laboratory Results - last 24 hr 04/01/23 07:14 Sodium 132 L Potassium 4.4 Chloride 100 Carbon Dioxide 23 Anion Gap 9 BUN 15 Creatinine 0.90 Estim Creat Clear Calc 32 Estimated GFR 60 Glucose 105 Calcium 8.8 Magnesium 2.1 ASA Classification/Sedation ASA Classification/Sedation ASA Class: II Emergent: No Risks: Risks, benefits and alternatives explained and patient/family accepted plan
--- NOTE | 2023-04-01 08:52 | WPDCARDVER ---
Cardioversion Cardioversion Date of procedure: 04/01/23 Procedure: elective cardioversion Moderate sedation Pre-op diagnosis: atrial fibrillation Post-op diagnosis: Same Indications: atrial fibrillation Description of procedure: after discussing the risks, benefits and alternatives of the procedure the patient agreeable via verbal and written informed consent. Risks discussed include skin irritation or burn, shock into more problematic heart rhythm, adverse reaction to anesthesia. Stroke is also a risk which was discussed. After time-out was taken and after establish continuous sap administrator, pulse oxygenation and serial blood pressure assessment sedation was initiated. Complications: None Blood loss: None Procedure start time 8:45 a.m. Procedure stop time 8:51 a.m. Sedation: total of 2 mg Versed and 25 mcg of fentanyl were given for moderate sedation. Medications were administered and patient was monitored by Jerrica Maurer RN Findings: successful jehovah's witness of sinus rhythm/ sinus bradycardia using 125 joules of synchronized biphasic energy. Conclusion: 1. Successful jehovah's witness of sinus rhythm/ sinus bradycardia is in 125 joules of biphasic synchronized energy 2. Moderate sedation Will reduce her amiodarone to 200 mg once daily as well as hold her metoprolol for now. She is bradycardic but stable with blood pressures in the 120/70s.
--- NOTE | 2023-04-01 09:00 | ECG_ITS ---
Measurements Intervals [place] Rate: 38 P: 79 [place]: 211 QRS: 127 QRSD: 109 T: -4 QT: 538 QTc: 429 Interpretive Statements SINUS BRADYCARDIA WITH MARKED SINUS ARRHYTHMIA WITH FIRST DEGREE AV BLOCK INCOMPLETE RIGHT BUNDLE BRANCH BLOCK DELAYED PRECORDIAL R/S TRANSITION BORDERLINE ST-T WAVE ABNORMALITY- DIFFUSE LEADS BASELINE WANDER- I, II, V3 ABNORMAL ECG COMPARED TO ECG 04/01/2023 07:14:05 SINUS BRADYCARDIA NOW PRESENT FIRST DEGREE AV BLOCK NOW PRESENT Electronically Signed On 04-01-2023 9:22:36 CDT by Scout Boles D.O.
--- NOTE | 2023-04-01 11:49 | ECG_ITS ---
Measurements Intervals [place] Rate: 70 P: [place]: 0 QRS: 115 QRSD: 109 T: -80 QT: 414 QTc: 449 Interpretive Statements ATRIAL FIBRILLATION INCOMPLETE RIGHT BUNDLE BRANCH BLOCK DELAYED PRECORDIAL R/S TRANSITION BORDERLINE ST-T WAVE ABNORMALITY- DIFFUSE LEADS ABNORMAL ECG COMPARED TO ECG 04/01/2023 08:59:41 ATRIAL FIBRILLATION NOW PRESENT Electronically Signed On 04-01-2023 12:17:45 CDT by Scout Boles D.O.
== END 2023-04-01 13:55 | disposition home or self-care (01) ==
PROVIDERS: PCP Family Medicine; Visit Provider Internal Medicine Cardiovascular Disease
PROC: 5A2204Z Restoration of Cardiac Rhythm, Single (ICD-10-PCS; principal; 2023-04-01 08:30)
DX: I48.91 Unspecified atrial fibrillation (principal); M81.0 Age-related osteoporosis without current pathological fracture; Z79.01 Long term (current) use of anticoagulants
CPT/HCPCS: 36415; 80048; 83735; 92960; 93005; J2250; J2310; J3010; J7030

== ENCOUNTER 2023-06-14 15:23 | Emergency (ER) | payer MEDICARE, SELFPAY ==
--- NOTE | ~2023-06-14 | XR_ITS ---
XR chest 2V 06/14/2023 16:22 Indication: Shortness of breath. Low heart rate. Procedure: AP and lateral views of the chest Comparison: No prior studies for comparison. Findings: Small pleural effusions. Bibasilar airspace disease. Moderate cardiomegaly. No edema or pne umothorax. No acute osseous abnormality. Impression: 1: Posterior basilar airspace disease may represent atelectasis or pneumonia. 2: Small pleural effusions. 3: Moderate cardiomegaly. Reviewed, dictated and finalized at location A. Impression: 1: Posterior basilar airspace disease may represent atelectasis or pneumonia. 2: Small pleural effusions. 3: Moderate cardiomegaly.
--- NOTE | 2023-06-14 15:49 | ECG_ITS ---
Measurements Intervals [place] Rate: 54 P: -74 [place]: 144 QRS: 132 QRSD: 120 T: -68 QT: 469 QTc: 445 Interpretive Statements ECTOPIC ATRIAL BRADYCARDIA RIGHT AXIS DEVIATION RIGHT BUNDLE BRANCH BLOCK ST-T WAVE ABNORMALITY IN ANTEROLAT/INF LEADS- CONSIDER ISCHEMIA ABNORMAL ECG COMPARED TO ECG 04/01/2023 11:54:45 ECTOPIC ATRIAL RHYTHM NOW PRESENT RIGHT BUNDLE-BRANCH BLOCK NOW PRESENT Electronically Signed On 06-14-2023 20:08:56 CDT by Scout Boles D.O.
[2023-06-14 16:00] LABS: Basophils Percent Auto 0.3 % (0.2-1.2); Eosinophils Percent Auto 0.1 % (0-4.4); Hematocrit 42.8 % (37.0-47.0); Hemoglobin 13.7 g/dL (12.0-15.0); Immature Granulocyte Absolute 0.04 K/mm3 (0.00-0.031); Immature Granulocyte Percent A 0.5 % (0-0.5); Lymphocytes Percent Auto 10.5 % (18.3-44.2); Mean Corpuscular Hemoglobin 28.5 pg (26-34); Monocytes Absolute Auto 0.9 K/mm3 (0.1-0.6); Monocytes Percent Auto 11.2 % (2.6-8.5); Neutrophils Absolute Auto 5.9 K/mm3 (1.3-6.7); Neutrophils Percent Auto 77.4 % (45.5-73.1); Platelet Count Result 177 k/mm3 (150-375); Red Blood Count 4.81 M/mm3 (4.2-5.4); Red Cell Distribution Width 15.7 % (11.5-14.5); White Blood Count 7.6 K/mm3 (4.5-10.0)
[2023-06-14 16:10] LABS: Alanine Aminotransferase 41 U/L (6-35); Albumin Level 4.1 g/dL (3.5-5.1); Alkaline Phosphatase 61 U/L (38-126); Anion Gap 14 mmol/L (8-16); Aspartate Amino Transferase 52 U/L (14-36); Bilirubin,Total 0.8 mg/dL (0.2-1.3); Blood Urea Nitrogen 27 mg/dL (7-17); Calcium 9.1 mg/dL (8.4-10.2); Carbon Dioxide 20 mmol/L (22-30); Chloride 98 mmol/L (98-107); Estimated Glomerular Filt Rate 43; Glucose 130 mg/dL (65-110); Lipase 211 U/L (23-300); Potassium 4.6 mmol/L (3.4-5.0); Sodium 132 mmol/L (137-145)
[2023-06-14 16:11] VITALS: BP 134/72; PULSE 56; RESP 18; TEMP 36.7; O2SAT 98
[2023-06-14 16:11] LABS: INR 1.5; Prothrombin Time 19.5 Seconds (11.1-14.7)
[2023-06-14 16:12] LABS: Partial Thromboplastin Time 30.6 SECONDS (22.3-36.8)
[2023-06-14 16:22] LABS: Troponin I < 0.012 ng/mL (0.000-0.034)
[2023-06-14 17:46] VITALS: BP 139/69; PULSE 56; O2SAT 99
[2023-06-14 20:47] VITALS: BP 184/83; PULSE 41; RESP 15; O2SAT 97
[2023-06-14 20:51] VITALS: O2SAT 97
[2023-06-14 21:50] LABS: NT Pro B Type Natriuretic Pept 7010 pg/mL (19.9-100)
[2023-06-14 21:56] LABS: Troponin I < 0.012 ng/mL (0.000-0.034)
--- NOTE | 2023-06-14 23:19 | ED.ARRPALP ---
HPI - Arrhythmia/Palpitations General Chief Complaint: Arrhythmia/Palpitations Stated Complaint: low HR Time Seen by Provider: 06/14/23 20:50 Source: patient Mode of arrival: ambulatory Limitations: no limitations History of Present Illness HPI narrative: This is an 82-year-old female that presents to the emergency department for low heart rate. Reports she was getting an outpatient physical exam for insurance. The nurse noted her heart rate was low and told her to go to the ER. She is not overtly symptomatic with this current LEEP. She does report over the last couple of months she has had some exertional shortness of breath. Reports she is currently being worked up for our an ASD and will be getting surgery soon. She has also recently been diagnosed with atrial fibrillation and follows with our cardiologists for this. Does report some lower extremity edema. Denies fever, cough, or chest pain. Related Data Home Medications Medication Instructions Recorded Confirmed calcium citrate 250 mg 1 tablet PO BID 08/02/21 03/29/23 calcium-vitamin D3 5 mcg (200 unit) tablet (Citracal Regular) bldllgbkweno-ocvjxjfm-xqqcztr-folic 1 tablet PO DAILY 08/02/21 03/29/23 acid 400 mcg-vit K1 20 mcg tablet (One-A-Day Women's 50 Plus) flaxseed oil 1,000 mg capsule 1,000 mg PO DAILY 09/19/22 03/29/23 Allergies Allergy/AdvReac Type Severity Reaction Status Date / Time Sulfa (Sulfonamide Allergy Mild Rash Verified 04/01/23 07:21 Antibiotics) Review of Systems Review of Systems: CONSTITUTIONAL: Denies fever CARDIOVASCULAR: Reports edema. Denies chest pain RESPIRATORY: Reports dyspnea. Denies cough All systems reviewed & are unremarkable except as noted in HPI and below PMFSH Past Medical History Medical History (Updated 06/14/23 @ 23:33 by Scarlet Juarez PA-C) Born by normal vaginal delivery History of atrial fibrillation Osteoporosis Surgical History Surgical History History of hemiarthroplasty of right hip History of lumpectomy of right breast History of tonsillectomy History of tubal ligation [place] teeth removed Family History Family History Mother Family history of lung cancer Sibling Acute myocardial infarction Father Family history of Alzheimer's disease Sibling Brain cancer Social History Social History Smoking status: Never smoker Second hand tobacco smoke exposure: Yes Alcohol intake: never Substance use: never Substance use type: does not use Lack of Transportation: No Lack of Food: Never True Current Housing: I Have Housing Concerned About Future Housing: No Difficulty Paying Gas/Electric Bills: No Difficulty Paying for Meds: No Currently Unemployed: No Education: Associate Degree Difficulty w/ Childcare or Family Care: No Living arrangements: alone Occupation/Education: retired Gender identity (if verbalized by the patient): Female Spiritual care concerns: No Agree to blood products: Yes Exam Narrative: GENERAL: Well-appearing, well-nourished, and in no acute distress. HEAD: Normocephalic, atraumatic. EYES: EOMI. ENT: Mucous membranes moist. NECK: Supple. No adenopathy or masses. No JVD CHEST: No respiratory distress. Rales in the bilateral lower lobes. No wheezes or rhonchi HEART: Regular rate and rhythm. No murmur heard. Normal peripheral pulses. EXTREMITIES: Normal range of motion. 1+ pitting edema to the bilateral ankles and feet SKIN: Warm, dry, no rash. NEURO: No focal deficits. Alert and oriented x3. PSYCH: Normal mood and affect Course Course Emergency Course: Patient and family updated on workup and agree with plan of care Consultations Consultation #1: Spoke with Cardiology, Dr. Gates, about patient and workup. Patient will b
[2023-06-14 23:45] VITALS: BP 173/76; PULSE 45; RESP 14; TEMP 36.4; O2SAT 95
== END 2023-06-14 23:46 | disposition home or self-care (01) ==
PROVIDERS: Preventive Medicine Aerospace Medicine; Emergency Provider Physician Assistant; PCP Family Medicine
DX: R00.1 Bradycardia, unspecified (principal); J90 Pleural effusion, not elsewhere classified; R06.02 Shortness of breath; I48.91 Unspecified atrial fibrillation; M81.0 Age-related osteoporosis without current pathological fracture; Z96.641 Presence of right artificial hip joint; I51.7 Cardiomegaly; I45.10 Unspecified right bundle-branch block; R94.31 Abnormal electrocardiogram [ECG] [EKG]
CPT/HCPCS: 36415; 71046; 80053; 83690; 83880; 84484; 85025; 85610; 85730; 93005; 99284

== ENCOUNTER 2023-06-21 14:52 | Outpatient (CLI) | payer MEDICARE, SELFPAY ==
[2023-06-21 15:59] LABS: Basophils Percent Auto 0.4 % (0.2-1.2); Eosinophils Absolute Auto 0.1 K/mm3 (0-0.3); Eosinophils Percent Auto 1.4 % (0-4.4); Hematocrit 43.4 % (37.0-47.0); Hemoglobin 13.8 g/dL (12.0-15.0); Immature Granulocyte Absolute 0.04 K/mm3 (0.00-0.031); Immature Granulocyte Percent A 0.5 % (0-0.5); Lymphocytes Absolute Auto 1.06 K/mm3 (0.9-3.2); Lymphocytes Percent Auto 14.4 % (18.3-44.2); Mean Corpuscular HGB Conc 31.8 g/dl (32-36); Mean Corpuscular Hemoglobin 28.5 pg (26-34); Mean Corpuscular Volume 89.5 fl (80-100); Mean Platelet Volume 9.2 fl (7.4-10.4); Neutrophils Absolute Auto 5.2 K/mm3 (1.3-6.7); Neutrophils Percent Auto 70.3 % (45.5-73.1); Platelet Count Result 179 k/mm3 (150-375); Red Blood Count 4.85 M/mm3 (4.2-5.4); Red Cell Distribution Width 15.7 % (11.5-14.5); White Blood Count 7.4 K/mm3 (4.5-10.0)
[2023-06-21 16:06] LABS: Appearance Urine Clear (Clear); Bacteria Urine None Seen /hpf; Bilirubin Urine Negative (Negative); Blood Urine Negative (Negative); Color Urine Yellow (Yellow); Glucose Urine UA Negative (Negative); Ketones Urine Negative (Negative); Leukocyte Esterase Ur Trace LEU/UL (Negative); Nitrate Urine Negative (Negative); Non Pathogenic Casts 0-2; Protein Urine Negative (Negative); Specific Grav Ur 1.014 (1.001-1.035); Squamous Epithelial Cell Urine None seen /hpf (Few); WBC Urine 0-5 /hpf
[2023-06-21 16:17] LABS: Potassium 4.1 mmol/L (3.4-5.0)
[2023-06-21 16:24] LABS: Add Urine Microscopic? YES
[2023-06-21 16:29] LABS: Anion Gap 9 mmol/L (8-16); Blood Urea Nitrogen 22 mg/dL (7-17); Carbon Dioxide 23 mmol/L (22-30); Chloride 97 mmol/L (98-107); Estimated Glomerular Filt Rate 60; Glucose 104 mg/dL (65-110); Sodium 129 mmol/L (137-145)
== END 2023-06-21 14:53 | disposition home or self-care (01) ==
PROVIDERS: PCP Family Medicine
DX: I27.20 Pulmonary hypertension, unspecified (principal); Q21.10 Atrial septal defect, unspecified
CPT/HCPCS: 36415; 80048; 81001; 85025

== ENCOUNTER 2023-07-06 08:40 | Emergency (ER) | payer MEDICARE, SELFPAY ==
[2023-07-06 08:50] VITALS: BP 147/82; PULSE 73; RESP 18; TEMP 36.4; O2SAT 100
--- NOTE | 2023-07-06 09:08 | ED.SKABFB ---
HPI - Skin/Abscess/Foreign Bdy General Chief complaint: Skin/Abscess/Foreign Body Stated complaint: Hives all over body Time Seen by Provider: 07/06/23 08:56 Source: patient, family (Daughter) and RN notes reviewed Mode of arrival: ambulatory Limitations: no limitations History of Present Illness HPI narrative: Patient presents today complaining of a 2 day history of severely pruritic rash over the back, buttocks, groin, abdomen, arms. States has been worsening since onset. Denies shortness of breath, difficulty swallowing, swelling in the face. She has taken 25 mg of Benadryl 3 times without relief. Last dose was at 1:00 a.m. this morning. Patient was discharged from the hospital a few days ago after cardiac procedure. Related Data Home Medications Medication Instructions Recorded Confirmed calcium citrate 250 mg 1 tablet PO BID 08/02/21 07/06/23 calcium-vitamin D3 5 mcg (200 unit) tablet (Citracal Regular) tmzpxnpygmet-cdcaxqds-lkqkbgz-folic 1 tablet PO DAILY 08/02/21 07/06/23 acid 400 mcg-vit K1 20 mcg tablet (One-A-Day Women's 50 Plus) flaxseed oil 1,000 mg capsule 1,000 mg PO DAILY 09/19/22 07/06/23 Allergies Allergy/AdvReac Type Severity Reaction Status Date / Time Sulfa (Sulfonamide Allergy Mild Rash Verified 06/19/23 09:09 Antibiotics) Review of Systems Review of Systems: CONSTITUTIONAL: Denies body aches, fever, chills, or sweats. EYES: Denies visual changes, redness, or discharge. ENT: Denies rhinorrhea, congestion, sore throat, or otalgia. CARDIOVASCULAR: Denies chest pain, palpitations, or edema. RESPIRATORY: Denies cough or dyspnea. GASTROINTESTINAL: Denies abdominal pain, nausea, vomiting, or diarrhea. GENITOURINARY: Denies dysuria or hematuria. SKIN: + pruritic rash MUSCULOSKELETAL: Denies back pain, joint pain, or myalgia. NEUROLOGIC: Denies headache, numbness, tingling, or weakness. PSYCH: Denies depression or anxiety. [facility] Past Medical History Medical History Born by normal vaginal delivery History of atrial fibrillation Osteoporosis Surgical History Surgical History History of hemiarthroplasty of right hip History of lumpectomy of right breast History of tonsillectomy History of tubal ligation [place] teeth removed Family History Family History Mother Family history of lung cancer Sibling Acute myocardial infarction Father Family history of Alzheimer's disease Sibling Brain cancer Social History Social History Smoking status: Never smoker Second hand tobacco smoke exposure: Yes Alcohol intake: never Substance use: never Substance use type: does not use Lack of Transportation: No Lack of Food: Never True Current Housing: I Have Housing Concerned About Future Housing: No Difficulty Paying Gas/Electric Bills: No Difficulty Paying for Meds: No Currently Unemployed: No Education: Associate Degree Difficulty w/ Childcare or Family Care: No Living arrangements: alone Occupation/Education: retired Gender identity (if verbalized by the patient): Female Spiritual care concerns: No Agree to blood products: Yes Comments At time of signature, I have reviewed and agree with nursing past medical, surgical, social and family history unless otherwise noted. Please see nursing chart for further information. There is no relevant family history pertinent to the presenting complaint Exam Narrative: GENERAL: Well-appearing, well-nourished, and in no acute distress. HEAD: Normocephalic, atraumatic. EYES: EOMI. No redness or drainage. Conjunctivae normal. ENT: Mucous membranes pink and moist. No facial swelling. NECK: Normal AROM. Supple. No lymphadenopathy. CHEST: No resp
== END 2023-07-06 09:20 | disposition home or self-care (01) ==
PROVIDERS: Emergency Provider Nurse Practitioner; PCP Family Medicine
DX: L50.9 Urticaria, unspecified (principal); I48.91 Unspecified atrial fibrillation; M81.0 Age-related osteoporosis without current pathological fracture
CPT/HCPCS: 96372; 99213; G0463; J1100

== ENCOUNTER 2023-08-26 07:38 | Outpatient (CLI) | payer MEDICARE, SELFPAY ==
[2023-08-26 08:30] LABS: Anion Gap 8 mmol/L (8-16); Blood Urea Nitrogen 21 mg/dL (7-17); Calcium 9.1 mg/dL (8.4-10.2); Carbon Dioxide 26 mmol/L (22-30); Chloride 100 mmol/L (98-107); Estimated Glomerular Filt Rate > 60; Glucose 100 mg/dL (65-110); Potassium 4.2 mmol/L (3.4-5.0); Sodium 134 mmol/L (137-145)
== END 2023-08-26 07:39 | disposition home or self-care (01) ==
PROVIDERS: PCP Family Medicine; Visit Provider Physician Assistant Medical
DX: E87.1 Hypo-osmolality and hyponatremia (principal)
CPT/HCPCS: 36415; 80048

== ENCOUNTER 2023-09-12 07:28 | Outpatient (CLI) | payer MEDICARE, SELFPAY ==
[2023-09-12 09:45] LABS: Basophils Percent Auto 0.4 % (0.2-1.2); Eosinophils Percent Auto 0.6 % (0-4.4); Hematocrit 44.7 % (37.0-47.0); Immature Granulocyte Absolute 0.02 K/mm3 (0.00-0.031); Immature Granulocyte Percent A 0.3 % (0-0.5); Lymphocytes Absolute Auto 0.97 K/mm3 (0.9-3.2); Lymphocytes Percent Auto 13.6 % (18.3-44.2); Mean Corpuscular HGB Conc 31.3 g/dl (32-36); Mean Corpuscular Hemoglobin 28.7 pg (26-34); Mean Corpuscular Volume 91.8 fl (80-100); Monocytes Absolute Auto 0.8 K/mm3 (0.1-0.6); Monocytes Percent Auto 11.5 % (2.6-8.5); Neutrophils Absolute Auto 5.3 K/mm3 (1.3-6.7); Neutrophils Percent Auto 73.6 % (45.5-73.1); Platelet Count Result 242 k/mm3 (150-375); Red Blood Count 4.87 M/mm3 (4.2-5.4); Red Cell Distribution Width 13.4 % (11.5-14.5); White Blood Count 7.1 K/mm3 (4.5-10.0)
[2023-09-12 09:57] LABS: Anion Gap 8 mmol/L (8-16); Blood Urea Nitrogen 19 mg/dL (7-17); Calcium 9.3 mg/dL (8.4-10.2); Carbon Dioxide 26 mmol/L (22-30); Chloride 100 mmol/L (98-107); Estimated Glomerular Filt Rate > 60; Glucose 100 mg/dL (65-110); Sodium 134 mmol/L (137-145)
== END 2023-09-12 07:29 | disposition home or self-care (01) ==
PROVIDERS: PCP Family Medicine
DX: Z01.812 Encounter for preprocedural laboratory examination (principal); I10 Essential (primary) hypertension
CPT/HCPCS: 36415; 80048; 85025

== ENCOUNTER 2023-12-04 09:19 | Outpatient (CLI) | payer MEDICARE, SELFPAY ==
[2023-12-04 10:38] LABS: Anion Gap 9 mmol/L (8-16); Blood Urea Nitrogen 21 mg/dL (7-17); Calcium 9.2 mg/dL (8.4-10.2); Carbon Dioxide 26 mmol/L (22-30); Chloride 101 mmol/L (98-107); Estimated Glomerular Filt Rate > 60; Glucose 80 mg/dL (65-110); Potassium 4.4 mmol/L (3.4-5.0); Sodium 136 mmol/L (137-145)
== END 2023-12-04 09:20 | disposition home or self-care (01) ==
LOC: ANHLAB 09:25
PROVIDERS: PCP Internal Medicine Cardiovascular Disease; Visit Provider Physician Assistant
DX: E87.5 Hyperkalemia (principal)
CPT/HCPCS: 36415; 80048

== ENCOUNTER 2024-04-07 12:31 | Outpatient (CLI) | payer MEDICARE, SELFPAY ==
--- NOTE | ~2024-04-07 | US_ITS ---
EXAMINATION: US carotid duplex BI DATE: 04/07/2024 13:38 INDICATION: Left carotid bruit TECHNIQUE: Grayscale, color Doppler, and pulsed Doppler images of the cervical carotid arteries were obtained. The degree of vessel stenosis is placed in one of the following categories: normal, <50%, 5 0-69%, >=70% but less than near-occlusion, near-occlusion, or total occlusion. Note that percent sten osis relative to normal distal artery lumen diameter is indirectly measured from velocity measurement s as described by Yanick, et al. Radiology 2003; 229:340-346. Notes: Normal: Peak systolic velocity <125 centimeters/sec and no plaque <50%. Peak systolic velocity <125 ( EDV <40; ICA/CCA PSV ratio <2.0; used these factors only a tandem lesions or low cardiac output or co ntralateral disease) 50-69 %: PSV 125-230 (EDV 40-100; ratio 2-4) >= 70% but less than near occlusion: PSV greater than 230 (EDV > 100; ratio> 4.0) Near Occlusion: PSV that is variable; markedly narrowed lumen Occlusion: Absent flow on color/spectral Doppler and no lumen on hansen scale. COMPARISON: None. FINDINGS: RIGHT: The right common carotid artery (CCA) peak systolic velocity (PSV) is 91 cm/s. The right internal car otid artery (ICA) PSV is 124 cm/s. The right ICA end-diastolic velocity (EDV) is 22 cm/s. The right I CA/CCA PSV ratio is 1.4. The external carotid artery (ECA) PSV is 119 cm/s. There is antegrade flow i n the right vertebral artery. LEFT: The left CCA PSV is 108 cm/s. The left ICA PSV is 109 cm/s. The left ICA EDV is 22 cm/s. The left ICA /CCA PSV ratio is 1.0. The ECA PSV is 109 cm/s. There is antegrade flow in the left vertebral artery . IMPRESSION: 1. Less than 50% stenosis in the right internal carotid artery by sonographic criteria. 2. Less than 50% stenosis in the left internal carotid artery by sonographic criteria. Reviewed, dictated and finalized at location A. IMPRESSION: 1. Less than 50% stenosis in the right internal carotid artery by sonographic patrice dubois. 2. Less than 50% stenosis in the left internal carotid artery by sonographic alessandro coleman.
== END 2024-04-07 12:32 | disposition home or self-care (01) ==
LOC: ANHIMG 12:35
PROVIDERS: PCP Internal Medicine Cardiovascular Disease; Visit Provider Internal Medicine Cardiovascular Disease
DX: R09.89 Other specified symptoms and signs involving the circulatory and respiratory systems (principal)
CPT/HCPCS: 93880

== ENCOUNTER 2024-05-16 09:05 | Outpatient (CLI) | payer MEDICARE, SELFPAY ==
--- NOTE | ~2024-05-16 | MM_ITS ---
EXAMINATION: MM screening rina BI w edgar HISTORY: Screening mammogram TECHNIQUE: Craniocaudal and mediolateral oblique 3-D tomosynthesis images were obtained and synthetic 2-D images were generated. CAD analysis was submitted and interpreted. COMPARISON: 05/09/2020, 04/29/2018, 11/05/2016 BREAST PARENCHYMAL COMPOSITION:Dense: The breasts are extremely dense, which lowers the sensitivity o f mammography. FINDINGS: No suspicious mass, calcification, or architectural distortion are identified in either brooke ast to suggest malignancy. There has been no suspicious interval change. IMPRESSION: No mammographic evidence of malignancy. Recommend routine screening mammography in one year. BI-RADS Category 1: Negative Reviewed, dictated and finalized at location .
== END 2024-05-16 09:06 | disposition home or self-care (01) ==
LOC: ANHIMG 09:11
PROVIDERS: PCP Family Medicine; Visit Provider Family Medicine
DX: Z12.31 Encounter for screening mammogram for malignant neoplasm of breast (principal)
CPT/HCPCS: 77063; 77067

== ENCOUNTER 2024-10-12 07:46 | Outpatient (CLI) | payer MEDICARE, SELFPAY ==
[2024-10-12 08:40] LABS: Basophils Percent Auto 0.6 % (0.2-1.2); Eosinophils Absolute Auto 0.1 K/mm3 (0-0.3); Eosinophils Percent Auto 2.8 % (0-4.4); Hematocrit 39.6 % (37.0-47.0); Hemoglobin 12.6 g/dL (12.0-15.0); Immature Granulocyte Absolute 0.01 K/mm3 (0.00-0.031); Immature Granulocyte Percent A 0.2 % (0-0.5); Lymphocytes Absolute Auto 1.14 K/mm3 (0.9-3.2); Lymphocytes Percent Auto 22.6 % (18.3-44.2); Mean Corpuscular HGB Conc 31.8 g/dl (32-36); Mean Corpuscular Hemoglobin 27.8 pg (26-34); Mean Corpuscular Volume 87.4 fl (80-100); Monocytes Absolute Auto 0.5 K/mm3 (0.1-0.6); Monocytes Percent Auto 9.7 % (2.6-8.5); Neutrophils Absolute Auto 3.2 K/mm3 (1.3-6.7); Neutrophils Percent Auto 64.1 % (45.5-73.1); Platelet Count Result 193 k/mm3 (150-375); Red Blood Count 4.53 M/mm3 (4.2-5.4); White Blood Count 5.1 K/mm3 (4.5-10.0)
[2024-10-12 08:51] LABS: Alanine Aminotransferase 15 U/L (6-35); Albumin Level 4.4 g/dL (3.5-5.1); Alkaline Phosphatase 51 U/L (38-126); Anion Gap 7 mmol/L (4-12); Aspartate Amino Transferase 26 U/L (14-36); Bilirubin,Total 0.9 mg/dL (0.2-1.3); Blood Urea Nitrogen 18 mg/dL (7-17); Calcium 9.2 mg/dL (8.4-10.2); Carbon Dioxide 26 mmol/L (22-30); Chloride 102 mmol/L (98-107); Cholesterol 193 mg/dL (0-200); Estimated Glomerular Filt Rate > 60; Glucose 88 mg/dL (65-110); HDL Direct 56 mg/dL; Potassium 4.2 mmol/L (3.4-5.0); Sodium 135 mmol/L (137-145); Triglycerides 124 mg/dL (<150)
[2024-10-12 09:02] LABS: LDL Cholesterol Direct 109 mg/dL
== END 2024-10-12 07:47 | disposition home or self-care (01) ==
PROVIDERS: PCP Family Medicine; Visit Provider Family Medicine
DX: I48.91 Unspecified atrial fibrillation (principal); E55.9 Vitamin D deficiency, unspecified; R53.83 Other fatigue; E78.2 Mixed hyperlipidemia; E87.1 Hypo-osmolality and hyponatremia
CPT/HCPCS: 36415; 80053; 80061; 82306; 84443; 85025

== ENCOUNTER 2025-06-21 07:35 | Outpatient (CLI) | payer MEDICARE, SELFPAY ==
--- NOTE | ~2025-06-21 | MM_ITS ---
EXAMINATION: MM screening rina BI w edgar HISTORY: Screening TECHNIQUE: Craniocaudal and mediolateral oblique 3-D tomosynthesis images were obtained and synthetic 2-D images were generated. CAD analysis was submitted and interpreted. COMPARISON: Comparison to multiple prior studies sequentially, with oldest reviewed study dated 08/20. BREAST PARENCHYMAL COMPOSITION: The breasts are extremely dense, which lowers the sensitivity of mamm ography. FINDINGS: There is no evidence of suspicious mass, calcification, or architectural distortion to sug gest malignancy in either breast. Scattered benign-appearing calcifications are present. IMPRESSION: 1. No mammographic evidence of malignancy. 2. Recommend routine screening mammography in one year. BI-RADS Category 2: Benign finding(s). Reviewed, dictated and finalized at location B.
--- OUTSIDE RECORDS SUMMARY | 2025-06-21 07:38 | XMS_ITS | Clinical Summary ---
Author Organization [facility] Address [address] [place] [address] Care Team Providers Care Mobile Plant Operators Name Role Phone Madiha Spann MD Primary Care Provider [phone] Source Comments [facility],non-owned Affiliates and Associated Physician Practices is amultiple site organization consisting of ambulatory clinics and hospital sitesin [place], [place], [place] and [place]. This disclosure is being madepursuant to the Care Everywhere program and may not contain all information available regarding this patient. Last updated 18.[facility] Allergies Active Allergy Reactions Criticality Noted Date Comments Adhesive Sensitivity Rash Medium 10/27/2023 AFTER EKG LEADS PLACED Sulfa Drugs Rash Medium 10/27/2023 Sulfanilamide Rash Medium 10/27/2023 Medications * Be aware that medications may not be up to date on this document. Alwaysverify current medications with the patient. acetaminophen (TYLENOL) 500 MG tabletIndication s:Fever,Pain Take 1,000 mg by mouth every 6 hours as needed for Fever, Headache or Pain. Indications: Fever, Pain 3 Active amiodarone (Cordarone) 200 MG tabletIndication s:Atrial Fibrillation Take 200 mg by mouth once daily. Indications: Atrial Fibrillation 3 Active aspirin (Aspirin) 81 MG chew tabletIndication s:Deep venous thrombosis (DVT) Take 81 mg by mouth once. Indications: Deep venous thrombosis (DVT) 3 Active calcium citrate-vitamin D (Calcium Citrate + D3) 315-250 MG-UNIT tabletIndication s:Hypocalcemia Take 1 tablet by mouth once daily. Indications: Low Amount of Calcium in the Blood 3 Active apixaban (Eliquis) 2.5 MG tabletIndication s:Atrial Fibrillation Take 2.5 mg by mouth 2 times daily. Indications: Atrial Fibrillation 3 Active Multiple Vitamin (ONE DAILY MULTIVITAMIN ADULT PO)Indications:V ITAMIN REPLACEMENT Take 18 mg by mouth once daily. Indications: VITAMIN REPLACEMENT Active oxyCODONE, immediate release, (Roxicodone) 5 MG tabletIndication s:Acute Pain Take 5 mg by mouth every 6 hours as needed for Pain. Indications: Acute Pain 3 Active pantoprazole EC (Protonix) 40 MG tabletIndication s:Heartburn Take 40 mg by mouth once daily. Indications: Heartburn 3 Active polyethylene glycol 3350 (GlycoLax) 17 GM/SCOOP powderIndication s:Constipation Take 17 g by mouth once daily as needed for Constipation. Indications: Constipation Active senna-docusate (Senokot-S) 8.6-50 MG tabletIndication s:Constipation Take 1 tablet by mouth 2 times daily. Indications: Constipation 3 Active Social History Tobacco Use Types Packs/Day Years Used Date Smoking Tobacco: Never Assessed OASIS D0700: Social Isolation Answer Da te Recorded Frequency of experiencing loneliness or isolatio n Never 11/13/2023 OASIS A1250: Transportation Answer Date Recorded Lack of Transportation (Medical) No 11/13/2023 Lack of Transportation (Non-Medical) No 11/13/2023 Patient Unable or Declines to Respond No 11/13/2023 OASIS B1300: Health Literacy Answer Lanre e Recorded Frequency of needing help to read materials from doctor or pharmacy Never 11/13/2023 Comments Unknown Sex and Gender Information Value Date Recorded Sex Assigned at Not on file Legal Sex Female 2:16 PM CELLOPHANE PRESS OPERATOR Gender Identity Not on file Sexual Orientation Not on file Last Filed Vital Signs Vital Sign Reading Time Taken Comments Blood Pressure 120/74 11/13/2023 1:55 PM CELLOPHANE PRESS OPERATOR Pulse 76 11/13/2023 1:55 PM CELLOPHANE PRESS OPERATOR Temperature 36.8 C (98.3 F) 11/13/2023 1:55 PM CELLOPHANE PRESS OPERATOR Respiratory Rate 18 11/13/2023 1:55 PM CELLOPHANE PRESS OPERATOR Oxygen Saturation 96% 11/13/2023 1:55 PM CELLOPHANE PRESS OPERATOR Inhaled Oxygen Concentration - - Weight 44.5 kg (98 lb) 11/13/2023 1:55 PM CELLOPHANE PRESS OPERATOR Height - - Body Mass Index - - Plan of Treatment Health Maintenance Due Date Last Done Comments BONE DENSITY TESTING 1941 DTAP/TDAP/TD VACCINES (1 - Tdap) 1960 PNEUMOCOCCAL VACCINE 50+ (1 of 1 - PCV) 1991 ZOSTER VACCINE (1 of 2) 1991 Respiratory Syncytial Virus (RSV) Vaccine Pt: or over 60 yrs (1 - 1-dose 75+ series) 2016 COVID-19 VACCINE (1 - 2023-2 5 season) 2024 DEPRESSION SCREENING 11/18/2024 MEDICARE AWV CALENDAR YEAR 2024 INFLUENZA VACCINE (#1) 2025 08/02/2023 HEPATITIS B VACCINE Aged Out No longe r eligible based on patient's age to complete this topic HIB VACCINE Aged Out No longer eligi ble based on patient's age to complete this topic HPV VACCINE Aged Out No longer eligi ble based on patient's age to complete this topic MENINGOCOCCAL (Group B) VACC INE SHARED DECISION-MAKING Aged Out No longer eligibl e based on patient's age to complete this topic MENINGOCOCCAL GROUPS A/C/Y/W VACCINE Aged Out No longer eligible b ased on patient's age to complete this topic Insurance [facility] MANAGED MEDICARE ADV Care Teams Mobile Plant Operators Relationship Specialty Start Date End Date Madiha Spann MD [address] [place] [address] PCP - General Family Medicine 10/22/23
--- OUTSIDE RECORDS SUMMARY | 2025-06-21 07:38 | XMS_ITS | Referral Summary ---
Author Organization [facility] Address [facility] [place] [address] Care Team Providers Care Ballast Cleaning Machine Operator Name Role Phone Madiha Spann MD Primary Care Provider [phone] Alber Davis MD, Bryon Kang Unavailable [phone] Nish Ortiz MD Unavailable [phone] Miscellaneous, Not In File Unavailable Unava ilable Encounters Date Type Department Care Team Description 03/23/2025 Telephone [facility] Cardiology [address] [place] [address] Edmundo Douglas MD from Last 3 Months Allergies Active Allergy Reactions Criticality Noted Date Comments Adhesive Rash Medium 10/15/2023 Rash after EKG electrodes Sulfa (Sulfonamide Antibiotics) Rash Medium 02/09/2023 Sulfanilamide Rash Reaction: Rash, Medications calcium citrate-vitamin D3 (CITRACAL WITH D) 315 mg-6.25 mcg (250 unit) per tablet Take 1 tablet by mouth every morning Active multivitamin-Ca -iron-minerals 18-0.4 mg tablet Take 1 tablet by mouth every morning Active acetaminophen 500 mg capsule Take 2 capsules (1,000 mg total) by mouth every 6 (six) hours as needed for pain 10/25/2023 Active ascorbic acid (VITAMIN C) 250 mg tablet Take 1 tablet (250 mg total) by mouth as needed Active apixaban (Eliquis) 2.5 mg tablet Take 1 tablet (2.5 mg total) by mouth 2 (two) times a day 180 tablet 3 11/25/2024 Active Active Problems Problem Noted Date Diagnosed Date Left carotid bruit 03/25/2024 History of repair of congenital atrial septal de fect (ASD) 03/25/2024 Acute post-operative pain 10/22/2023 Assessment & Plan (10/24/2023 10:47 AM HEAT AND FROST INSULATOR): To be expected following cardiac surgery -Continue scheduled Tylenol -Continue PRN Oxycodone -utilize splinting technique Acute blood loss anemia 10/22/2023 Assessment & Plan (10/24/2023 10:47 AM HEAT AND FROST INSULATOR): To be expected following cardiac surgery -Monitor CBC, hgb stable at 10.1 -No active signs of bleeding -Consider transfusion if Hgb <7 or if hemodynamically unstable Hypertension 10/22/2023 Assessment & Plan (12/05/2023 8:25 PM HEAT AND FROST INSULATOR): Currently not on any anti-hypertensive medications. Elevated today but was better at her cardiology visit yesterday. Monitor at home and notify us if consistently >14/>90. Assessment & Plan (10/24/2023 10:45 AM HEAT AND FROST INSULATOR): Monitor VS Q4H Consider LORETO-I No antihypertensives indicated at this time per Dr. Ortiz Encourage low sodium diet Dysphagia 10/22/2023 Assessment & Plan (10/24/2023 10:45 AM HEAT AND FROST INSULATOR): Dysphagia post-op - failed FEES 10/17 - MBS on 10/21-regular food, thin liquid - SBFT removed on 10/22 - Encourage PO intake - Monitor calorie counts Atrial septal defect 10/16/2023 Assessment & Plan (12/05/2023 8:29 PM HEAT AND FROST INSULATOR): Status post ASD closure on 10/16/23. Continue routine monitoring. Was offered cardiac rehab but she declined. Assessment & Plan (10/24/2023 10:46 AM HEAT AND FROST INSULATOR): 10/16: S/P ASD closure w/ bovine patch, MAZE, and MAIA clip Cardiac MRI a large ASD with marked dilation and hypertrophy of the RV, severe MR, moderate TR, and dilation of the pulmonary arteries (R>L) consistent with pulmonary hypertension. Now s/p ASD closure w/ bovine patch, MAZE, and MAIA clip. Post CPB YANETH w/ preserved BiV systolic function on BOX STAPLER 5, now without ASD flow, pulmonary veins w/ normal flow, mild TR. Per report, PAS 50 at start of case. No PAC placed d/t concern for need for tricuspid repair. -Will repeat 2V CXR tonight per Dr. Ortiz -No diuretics per Dr. Ortiz -Monitor telemetry, SB/SR 60's this AM -Continue bowel regimen -Hold Lovenox following dk red tinged stool -Encourage pulmonary hygiene, IS -Continue PT/OT -Post-Op TTE ordered Bilateral lower extremity edema 07/10/2023 Atrial fibrillation 03/01/2023 Assessment & Plan (12/05/2023 8:28 PM HEAT AND FROST INSULATOR): Status post MAZE and MAIA clip on 10/16/23. Normal rate and rhythm upon auscultation. Amiodarone discontinued by her general claim professional yesterday. Continue Eliquis 2.5 mg daily. Assessment & Plan (10/23/2023 1:28 PM HEAT AND FROST INSULATOR): 10/16: S/P ASD closure w/ bovine patch, MAZE, and MAIA clip -Monitor telemetry, SR/SB this AM -Continue Amiodarone 200mg daily -No BB per Dr. Ortiz -No AC at this time, will plan to restart home Eliquis at discharge Chronic anticoagulation 03/01/2023 Resolved Problems Problem Noted Date Diagnosed Date Resolved Date ASD (atrial septal defect), primum 09/09/2023 10/22/2023 Tricuspid valve insufficiency 09/09/2023 10/22/2023 Mitral valve insufficiency 09/09/2023 1 12/23/2022 Severe protein-calorie malnutrition 07/03/2023 10/22/2023 Pulmonary hypertension 03/25/202310/22 ASD (atrial septal defect) 03/25/2023 1 12/23/2022 Immunizations Immunization Administration Dates Next Due Influenza, Unspecified 08/02/2023 Social History Tobacco Use Types Packs/Day Years Used Date Smoking Tobacco: Never Passive Smoke Exposure: Never Smokeless Tobacco: Never Tobacco Cessation:Counseling Given: Not Answered Alcohol Use Standard Drinks/Week Comments Yes 0 (1 standard drink = 0.6 oz pur e alcohol) AUDIT-C Answer Date Recorded Q1: How often do you have a drink containing alcohol? Never 10/16/2023 Q2: How many drinks containi ng alcohol do you have on a typical day when you are drinking? Patient does not drink Q3: How often do you have si x or more drinks on one occasion? Never 10/16/2023 Personal Safety Answer Date Recorded Have you ever been in or are you currently in a harmful physical or emotional relationship or is someone making you feel afraid or unsafe? Denies 10/20/2023 Comments No Sex and Gender Information Value Date Recorded Sex Assigned at Not on file Legal Sex Female 2:49 AM HEAT AND FROST INSULATOR Gender Identity Female 03/18/2023 4:09 PM CDT Sexual Orientation Straight 03/18/2023 4: 09 PM CDT Last Filed Vital Signs Vital Sign Reading Time Taken Comments Blood Pressure 140/72 11/25/2024 3:09 PM HEAT AND FROST INSULATOR Pulse 88 11/25/2024 3:09 PM HEAT AND FROST INSULATOR Temperature 36.6 C (97.9 F) 10/25/2023 11:11 AM HEAT AND FROST INSULATOR Respiratory Rate 18 10/25/2023 11:11 AM HEAT AND FROST INSULATOR Oxygen Saturation 97% 11/25/2024 3:09 PM HEAT AND FROST INSULATOR Inhaled Oxygen Concentration - - Weight 50.3 kg (111 lb) 11/25/2024 3:09 PM HEAT AND FROST INSULATOR Height 157.5 cm (5' 2) 11/25/2024 3:09 PM HEAT AND FROST INSULATOR Body Mass Index 20.3 11/25/2024 3:09 PM HEAT AND FROST INSULATOR Plan of Treatment Not on file Medical Devices Implanted Type Area Mate First Device Identifier Shelf Expiration Date Model / Serial / Lot [employer] [place] Angio-Seal Vip 6fr Closere Device [id number] - [id number] - [id number] Implanted:Qty: 1 on 09/24/2023 by Rafa Bolivar MD at [facility] Collagen Right: Common Femoral Artery [employer] [place] 03/31/2024 [id number] / [id number] / [id number] Rt Elbow Fx, Ortho Instrumentation, Plate/Screws Right: Elbow Rt Femur Fx, Ortho Instrumentation Femur Atricure Device Left Atrial Appendage Malleable Shaft 180 Degree Rotation White Atriclip Flex V 35mm [id number] [id number] - [id number] Implanted:Qty: 1 on 10/16/2023 by Nish Ortiz MD at [facility] N/A: Heart Atricure 07/19/2026 [id number] / / [id number] [employer] [place] June-Guard Rogers Processing 14x8cm Multidirectional Fiber Patch [id number] - [id number] Implanted:Qty: 1 on 10/16/2023 by Nish Ortiz MD at [facility] N/A: Heart [employer] [place] [id number] 04/23/2024 [id number] / / [id number] Insurance [facility] MEDICARE ADVANTAGE [facility] MEDICARE Address: [facility] [address] [place] [address] [facility] MEDICARE ADVANTAGE [facility] MEDICARE Address: [address] [address] [place] [address] [facility] MEDICARE ADVANTAGE [facility] Address: [place] [id number] [place] [phone] [facility] MEDICARE ADVANTAGE [facility] MEDIC[facility] Address: [address] [address] [place] [address] Advance Directives For more information, please contact: [phone] * Full Code (Latest Code Status on File) Date Activated Date Inactivated Comments 10/20/2023 11:05 AM 10/25/2023 4:58 PM * Full Code Date Activated Date Inactivated Comments 09/24/2023 9:32 AM 09/24/2023 3:37 PM * Full Code Date Activated Date Inactivated Comments 06/28/2023 4:27 PM 07/04/2023 6:20 PM * Full Code Date Activated Date Inactivated Comments 06/28/2023 4:27 PM 06/28/2023 4:27 PM Care Teams Ballast Cleaning Machine Operator Relationship Specialty Start Date End Date Madiha Spann MD PCP - General Family Medicine 03/04/23 Bryon Campo Jr., MD Surgeon Cardiothoracic Surgery 10/16/23 Nish Ortiz MD [address] [address] Consulting Physician Cardiothoracic Surgery 10/25/23 Miscellaneous, Not In File 10/25/23
--- OUTSIDE RECORDS SUMMARY | 2025-06-21 07:38 | XMS_ITS | Clinical Summary ---
Author Organization [facility] Address [facility] [place] [address] Care Team Providers Care Black Ash Burner Operator Name Role Phone Madiha Spann MD Primary Care Provider [phone] Alber Davis MD, Bryon Kang Unavailable [phone] Nish Ortiz MD Unavailable [phone] Miscellaneous, Not In File Unavailable Unava ilable Allergies Active Allergy Reactions Criticality Noted Date [...] 10/22/2023 Assessment & Plan (10/24/2023 10:47 AM HEAD CD REACTOR OPERATOR): To be expected following cardiac surgery -Continue scheduled Tylenol -Continue PRN Oxycodone -utilize splinting technique Acute blood loss anemia 10/22/2023 Assessment & Plan (10/24/2023 10:47 AM HEAD CD REACTOR OPERATOR): To be expected following cardiac surgery -Monitor CBC, hgb stable at 10.1 -No active signs of bleeding -Consider transfusion if Hgb <7 or if hemodynamically unstable Hypertension 10/22/2023 Assessment & Plan (12/05/2023 8:25 PM HEAD CD REACTOR OPERATOR): Currently not on any anti-hypertensive medications. Elevated today but was better at her cardiology visit yesterday. Monitor at home and notify us if consistently >14/>90. Assessment & Plan (10/24/2023 10:45 AM HEAD CD REACTOR OPERATOR): Monitor VS Q4H Consider LORETO-I No antihypertensives indicated at this time per Dr. Ortiz Encourage low sodium diet Dysphagia 10/22/2023 Assessment & Plan (10/24/2023 10:45 AM HEAD CD REACTOR OPERATOR): Dysphagia post-op - failed FEES 10/17 - MBS on 10/21-regular food, thin liquid - SBFT removed on 10/22 - Encourage PO intake - Monitor calorie counts Atrial septal defect 10/16/2023 Assessment & Plan (12/05/2023 8:29 PM HEAD CD REACTOR OPERATOR): Status post ASD closure on 10/16/23. Continue routine monitoring. Was offered cardiac rehab but she declined. Assessment & Plan (10/24/2023 10:46 AM HEAD CD REACTOR OPERATOR): 10/16: S/P ASD closure w/ bovine patch, MAZE, and MAIA clip Cardiac MRI a large ASD with marked dilation and hypertrophy of the RV, severe MR, moderate TR, and dilation of the pulmonary arteries (R>L) consistent with pulmonary hypertension. Now s/p ASD closure w/ bovine patch, MAZE, and MAIA clip. Post CPB YANETH w/ preserved BiV systolic function on SOFTWARE ENGINEER BACKEND 5, now without ASD flow, pulmonary veins [...] 03/01/2023 Assessment & Plan (12/05/2023 8:28 PM HEAD CD REACTOR OPERATOR): Status post MAZE and MAIA clip on 10/16/23. Normal rate and rhythm upon auscultation. Amiodarone discontinued by her general oncology admin yesterday. Continue Eliquis 2.5 mg daily. Assessment & Plan (10/23/2023 1:28 PM HEAD CD REACTOR OPERATOR): 10/16: S/P ASD closure w/ bovine patch, [...] ASD (atrial septal defect) 03/25/2023 1 12/23/2022 Encounters Date Type Department Care Team Description 03/23/2025 Telephone [facility] Cardiology [address] [place] [address] Edmundo Douglas MD from Last 3 Months Immunizations Immunization Administration Dates Next Due Influenza, Unspecified 08/02/2023 Surgical History Surgery Date Site/Laterality Comments TONSILLECTOMY Tonsillectomy TUBAL LIGATION Bilateral tubal ligation HEMIARTHROPLASTY HIP Right BREAST LUMPECTOMY Right WISDOM TOOTH EXTRACTION CARDIOVERSION 04/01/2023 unsuccessful CARDIAC CATHETERIZATION 06/28/2023 Medical History Medical History Date Comments Osteoporosis Atrial fibrillation (HCC) ASD (atrial septal defect) Pulmonary hypertension (HCC) Hypertension Family History Medical History Relation Name Comments Heart attack Brother Min Heart disease Brother Min Alzheimer's disease Father Ana Alzheime r's Disease; Cause of : Alzheimer's Disease Lung cancer Mother Cancer, lung; Other Mother brain anursyim; Cancer Sister Sofia Relation Name Status Comments Brother Min Father Ana (Age 80) Mother Alive Sister Sofia Social History Tobacco Use Types Packs/Day Years [...] on file Legal Sex Female 2:49 AM HEAD CD REACTOR OPERATOR Gender Identity Female 03/18/2023 4:09 PM CDT Sexual Orientation Straight 03/18/2023 4: 09 PM CDT Obstetrics History Last Filed Vital Signs Vital Sign Reading Time Taken Comments Blood Pressure 140/72 11/25/2024 3:09 PM HEAD CD REACTOR OPERATOR Pulse 88 11/25/2024 3:09 PM HEAD CD REACTOR OPERATOR Temperature 36.6 C (97.9 F) 10/25/2023 11:11 AM HEAD CD REACTOR OPERATOR Respiratory Rate 18 10/25/2023 11:11 AM HEAD CD REACTOR OPERATOR Oxygen Saturation 97% 11/25/2024 3:09 PM HEAD CD REACTOR OPERATOR Inhaled Oxygen Concentration - - Weight 50.3 kg (111 lb) 11/25/2024 3:09 PM HEAD CD REACTOR OPERATOR Height 157.5 cm (5' 2) 11/25/2024 3:09 PM HEAD CD REACTOR OPERATOR Body Mass Index 20.3 11/25/2024 3:09 PM HEAD CD REACTOR OPERATOR Plan of Treatment Health Maintenance Due Date Last Done Comments Depression Screening 1941 Osteoporosis Screening-Bone Density Scan 1941 Hepatitis B Screening 1959 Zoster Vaccine (1 of 2) 1991 Well Visit 65+ 2006 Pneumococcal vaccine 65+ (2 of 2 - PCV) 04/19/2017 04/19/2016 Covid-19 Vaccine (2023-2 5 season) 2024 08/06/2022, 02/15/2022, 08/12/2021, Additional history exists Fall Risk Assessment 10/25/2024 10/25/2023 Influenza Vaccine (#1) 2025 3, 08/20/2022, 08/22/2021, Additional history exists DTaP/Tdap/Td Vaccine (2 - Td or Tdap) 06/06/2031 06/06/2021, 04/19/2016 Medical Devices Implanted Type Area Redipper Device Identifier Shelf Expiration Date Model / Serial / Lot [employer] [place] Angio-Seal Vip 6fr Closere Device [id number] - [id number] - [id number] Implanted:Qty: 1 on 09/24/2023 by Rafa Bolivar MD at [facility] Collagen Right: Common Femoral Artery [employer] [place] 03/31/2024 [id number] / [id number] / [id number] Rt Elbow Fx, Ortho Instrumentation, Plate/Screws Right: Elbow Rt Femur Fx, Ortho Instrumentation Femur Atricure Device Left Atrial Appendage Malleable Shaft 180 Degree Rotation White Atriclip Flex V 35mm Flexv35 [id number] - [id number] Implanted:Qty: 1 on 10/16/2023 by Nish Ortiz MD at [facility] N/A: Heart Atricure 07/19/2026 [id number] / / [id number] [employer] [place] June-Guard [place] Processing 14x8cm Multidirectional Fiber Patch [id number] - [id number] Implanted:Qty: 1 on 10/16/2023 by Nish Ortiz MD at [facility] N/A: Heart [employer] [place] [id number] 04/23/2024 [id number] / / [id number] Insurance [employer] [facility] MEDIC[employer] ADVANTAGE [employer] ADV[employer]AGE [employer] Advance Directives For more information, please contact: [phone] * Full Code (Latest Code Status on File) Date Activated Date Inactivated Comments 10/20/2023 11:05 AM 10/25/2023 4:58 PM * Full Code Date Activated Date Inactivated Comments 09/24/2023 9:32 AM 09/24/2023 3:37 PM * Full Code Date Activated Date Inactivated Comments 06/28/2023 4:27 PM 07/04/2023 6:20 PM * Full Code Date Activated Date Inactivated Comments 06/28/2023 4:27 PM 06/28/2023 4:27 PM Care Teams Black Ash Burner Operator Relationship Specialty Start Date End Date Madiha Spann MD PCP - General Family Medicine 03/04/23 Bryon Campo Jr., MD Surgeon Cardiothoracic Surgery 10/16/23 Nish Ortiz MD [address] [address] Consulting Physician Cardiothoracic Surgery 10/25/23 Miscellaneous, Not In File 10/25/23
--- OUTSIDE RECORDS SUMMARY | 2025-06-21 07:38 | XMS_ITS | Clinical Summary ---
Author Organization [facility] Address [address] [place] [address] Care Team Providers Care Waste Collector Name Role Phone Madiha Spann MD Primary Care Provider [phone] Allergies Active Allergy Reactions Criticality Noted Date Comments Sulfa Antibiotics Rash Medium 02/09/2023 Medications multivitamin (THERA) tablet Take 1 tablet by mouth daily. Active Calcium-Magnesiu m-Vitamin D (CITRACAL CALCIUM+D OR) Take 1 tablet by mouth 2 (two) times a day. Active Flaxseed, Linseed, (FLAX SEED OIL) 1000 MG capsule Take 1,000 mg by mouth daily. Active apixaban (ELIQUIS) 2.5 MG tabletIndication s:Atrial Fibrillation Take 1 tablet (2.5 mg total) by mouth 2 (two) times daily. Indications: Atrial Fibrillation 60 tablet 3 Active metoprolol tartrate (LOPRESSOR) 25 MG tablet Take 0.5 tablets (12.5 mg total) by mouth 2 (two) times daily. 60 tablet 3 Active Active Problems Problem Noted Date Diagnosed Date Atrial fibrillation with rap id ventricular response (CMS/HCC [facility]) 02/09/2023 Social History Tobacco Use Types Packs/Day Years Used Date Smoking Tobacco: Never Smokeless Tobacco: Never Alcohol Use Standard Drinks/Week Comments Not Currently 0 (1 standard drink = 0.6 oz pur e alcohol) Humiliation, Afraid, Rape, and Kick questionnair e Answer Date Recorded Within the last year, have y ou been afraid of your partner or ex-partner? No 02/09/2023 Within the last year, have y ou been humiliated or emotionally abused in other ways by your partner or ex-partner? No Within the last year, have y ou been kicked, hit, slapped, or otherwise physically hurt by your partner or ex-partner? No 02/09/2023 Within the last year, have y ou been raped or forced to have any kind of sexual activity by your partner or ex-partner? No 02/09/2023 Overall Financial Resource Strain (CARDIA) Answe r Date Recorded How hard is it for you to pa y for the very basics like food, housing, medical care, and heating? Not hard at all 02/09/2023 Hunger Vital Sign Answer Date Recorded Within the past 12 months, y ou worried that your food would run out before you got the money to buy more. Never true 02/10/20 23 Within the past 12 months, t he food you bought just didn't last and you didn't have money to get more. Never true 02/09/2023 PRAPARE - Transportation Answer Date Re corded In the past 12 months, has l ack of transportation kept you from medical appointments or from getting medications? No 01/17 In the past 12 months, has l ack of transportation kept you from meetings, work, or from getting things needed for daily living? No 02/09/2023 Housing Stability Vital Sign Answer Lanre e Recorded In the last 12 months, was t here a time when you were not able to pay the mortgage or rent on time? No 02/09/2023 In the last 12 months, how many places have you lived? 1 02/09/2023 In the last 12 months, was t here a time when you did not have a steady place to sleep or slept in a correction (including now)? No 02/09/2023 Comments No Sex and Gender Information Value Date Recorded Sex Assigned at Not on file Legal Sex Female 10:23 PM ADULT FAMILY HOME PROGRAM MANAGER Gender Identity Not on file Sexual Orientation Not on file Last Filed Vital Signs Vital Sign Reading Time Taken Comments Blood Pressure 154/79 02/09/2023 10:14 AM CDT Pulse 56 02/09/2023 10:14 AM CDT Temperature 35.9 C (96.7 F) 02/09/2023 10:14 AM CDT Respiratory Rate 16 02/09/2023 10:14 AM CDT Oxygen Saturation 99% 02/09/2023 10:14 AM CDT Inhaled Oxygen Concentration - - Weight 50.1 kg (110 lb 7.2 oz) 02/09/2023 10:14 AM CDT Height 154.9 cm (5' 1) 02/09/2023 10:14 AM CDT Body Mass Index 20.87 02/09/2023 10:14 AM CDT Plan of Treatment Health Maintenance Due Date Last Done Comments Zoster Vaccines (1 of 2) 1991 Annual Medicare Wellness Visit 2006 Dexa Scan (General) 2006 RSV Immunization or 60+ Years (1 - 1-dose 75+ series) 2016 Pneumococcal Vaccine: 50+ Years (2 of 2 - PCV) 04/19/2017 04/19/2016 COVID-19 Vaccine ( season) 2024 08/06/2022, 02/15/2022, 08/12/2021, Additional history exists DTaP, Tdap and Td Vaccines (2 - Td or Tdap) 06/06/2031 06/06/2021, 04/19/2016 Meningococcal B Vaccine Aged Out No l onger eligible based on patient's age to complete this topic Meningococcal Vaccine Aged Out No lizy camron eligible based on patient's age to complete this topic RSV Immunizations Under 20 Months Aged Out No longer eligible based on patient's age to complete this topic Insurance [facility] Advance Directives * Full Code (Latest Code Status on File) Date Activated Date Inactivated Comments 02/09/2023 10:23 AM 02/09/2023 2:38 PM Care Teams Waste Collector Relationship Specialty Start Date End Date Madiha Spann MD [address] [place] [address] PCP - General FAMILY PRACTICE 02/09/23
== END 2025-06-21 07:36 | disposition home or self-care (01) ==
LOC: ANHIMG 07:36
PROVIDERS: PCP Family Medicine; Visit Provider Family Medicine
DX: Z12.31 Encounter for screening mammogram for malignant neoplasm of breast (principal)
CPT/HCPCS: 77063; 77067

== ENCOUNTER 2025-11-08 07:22 | Outpatient (CLI) | payer MEDICARE, SELFPAY ==
--- OUTSIDE RECORDS SUMMARY | 2025-11-08 07:25 | XMS_ITS | Clinical Summary ---
Author Organization [facility] Address [facility] [place] [address] Care Team Providers Care Floor Supervisor Name Role Phone Madiha Spann MD Primary Care Provider [phone] Alber Davis MD, Bryon Kang Unavailable [phone] Nish Ortiz MD Unavailable [phone] Miscellaneous, Not In File Unavailable Unava ilable Fang Ruiz Unavailable Unavailable Allergies Active Allergy Reactions Criticality Noted Date [...] mg total) by mouth as needed Active Eliquis 2.5 mg tablet TAKE 1 TABLET(2.5 MG) BY MOUTH TWICE DAILY 180 tablet 3 08/20/2025 Active Active Problems Problem Noted Date Diagnosed Date Left carotid bruit 03/25/2024 History of repair of congenital atrial septal de fect (ASD) 03/25/2024 Acute post-operative pain 10/22/2023 Assessment & Plan (10/24/2023 10:47 AM OPERATIONAL METEOROLOGIST): To be expected following cardiac surgery -Continue scheduled Tylenol -Continue PRN Oxycodone -utilize splinting technique Acute blood loss anemia 10/22/2023 Assessment & Plan (10/24/2023 10:47 AM OPERATIONAL METEOROLOGIST): To be expected following cardiac surgery -Monitor CBC, hgb stable at 10.1 -No active signs of bleeding -Consider transfusion if Hgb <7 or if hemodynamically unstable Hypertension 10/22/2023 Assessment & Plan (12/05/2023 8:25 PM OPERATIONAL METEOROLOGIST): Currently not on any anti-hypertensive medications. Elevated today but was better at her cardiology visit yesterday. Monitor at home and notify us if consistently >14/>90. Assessment & Plan (10/24/2023 10:45 AM OPERATIONAL METEOROLOGIST): Monitor VS Q4H Consider LORETO-I No antihypertensives indicated at this time per Dr. Ortiz Encourage low sodium diet Dysphagia 10/22/2023 Assessment & Plan (10/24/2023 10:45 AM OPERATIONAL METEOROLOGIST): Dysphagia post-op - failed FEES 10/17 - MBS on 10/21-regular food, thin liquid - SBFT removed on 10/22 - Encourage PO intake - Monitor calorie counts Atrial septal defect 10/16/2023 Assessment & Plan (12/05/2023 8:29 PM OPERATIONAL METEOROLOGIST): Status post ASD closure on 10/16/23. Continue routine monitoring. Was offered cardiac rehab but she declined. Assessment & Plan (10/24/2023 10:46 AM OPERATIONAL METEOROLOGIST): 10/16: S/P ASD closure w/ bovine patch, MAZE, and MAIA clip Cardiac MRI a large ASD with marked dilation and hypertrophy of the RV, severe MR, moderate TR, and dilation of the pulmonary arteries (R>L) consistent with pulmonary hypertension. Now s/p ASD closure w/ bovine patch, MAZE, and MAIA clip. Post CPB YANETH w/ preserved BiV systolic function on CERTIFIED MEETING PROFESSIONAL 5, now without ASD flow, pulmonary veins [...] 03/01/2023 Assessment & Plan (12/05/2023 8:28 PM OPERATIONAL METEOROLOGIST): Status post MAZE and MAIA clip on 10/16/23. Normal rate and rhythm upon auscultation. Amiodarone discontinued by her general reconciliation manager yesterday. Continue Eliquis 2.5 mg daily. Assessment & Plan (10/23/2023 1:28 PM OPERATIONAL METEOROLOGIST): 10/16: S/P ASD closure w/ bovine patch, [...] Date Site/Laterality Comments TONSILLECTOMY Tonsillectomy TUBAL LIGATION 1977 Bilateral tubal ligation HEMIARTHROPLASTY HIP Right BREAST LUMPECTOMY Right WISDOM TOOTH EXTRACTION CARDIOVERSION 04/01/2023 unsuccessful CARDIAC CATHETERIZATION 06/28/2023 Medical History Medical History Date Comments Osteoporosis 2016 Atrial fibrillation (HCC) ASD (atrial septal defect) Pulmonary hypertension (HCC) Hypertension Family History Medical History Relation Name Comments Heart attack Brother Min Heart disease Brother Min Alzheimer's disease Father Ana Alzheime r's Disease; Cause of : Alzheimer's Disease Cancer Mother Lennie Gomez Lung cancer Mother Lennie Gomez Cancer, lung; Other Mother Lennie Gomez brain anursyim; Cancer Sister Sofia Relation Name Status Comments Brother Min Father Ana (Age 80) Mother Lennie Gomez Alive Sister Sofia Social History Tobacco Use [...] on file Legal Sex Female 2:49 AM OPERATIONAL METEOROLOGIST Gender Identity Female 03/18/2023 4:09 PM CDT Sexual Orientation Straight 03/18/2023 4: 09 PM CDT Last Filed Vital Signs Vital Sign Reading Time Taken Comments Blood Pressure 118/56 06/22/2025 2:05 PM CDT Pulse 74 06/22/2025 2:05 PM CDT Temperature 36.6 C (97.9 F) 10/25/2023 11:11 AM OPERATIONAL METEOROLOGIST Respiratory Rate 18 10/25/2023 11:11 AM OPERATIONAL METEOROLOGIST Oxygen Saturation 92% 06/22/2025 2:05 PM CDT Inhaled Oxygen Concentration - - Weight 49 kg (108 lb) 06/22/2025 2:05 PM CDT Height 157.5 cm (5' 2) 06/22/2025 2:05 PM CDT Body Mass Index 19.75 06/22/2025 2:05 PM CDT Plan of Treatment Health Maintenance Due Date Last Done Comments Depression Screening 1941 Osteoporosis Screening-Bone Density Scan 1941 Hepatitis B Screening 1959 Zoster Vaccine (1 of 2) 1991 Well Visit 65+ 2006 Pneumococcal vaccine 65+ (2 of 2 - PCV) 04/19/2017 04/19/2016 Fall Risk Assessment 10/25/2024 10/25/2023 Covid-19 Vaccine ( - 2024-2 6 season) 2025 08/06/2022, 02/15/2022, 08/12/2021, Additional history exists Influenza Vaccine (#1) 2025 , 08/20/2022, 08/22/2021, Additional history exists DTaP/Tdap/Td Vaccine (2 - Td or Tdap) 06/06/2031 06/06/2021, 04/19/2016 Medical Devices Implanted Type Area Laborer Hide House Device Identifier Shelf Expiration Date Model / Serial / Lot [employer] Angio-Seal Vip 6fr Closere Device [id number] - [id number] - [id number] Implanted:Qty: 1 on 09/24/2023 by Rafa Bolivar MD at [facility] Collagen Right: Common Femoral Artery [employer] 03/31/2024 [id number] / [id number] / [id number] Rt Elbow Fx, Ortho Instrumentation, Plate/Screws Right: Elbow Rt Femur Fx, Ortho Instrumentation Femur Atricure Device Left Atrial Appendage Malleable Shaft 180 Degree Rotation White Atriclip Flex V 35mm [id number] Achv35 - [id number] Implanted:Qty: 1 on 10/16/2023 by Nish Ortiz MD at [facility] N/A: Heart Atricure 07/19/2026 [id number] / / [id number] [employer] [place] June-Guard [place] Processing 14x8cm Multidirectional Fiber Patch [id number] - [id number] Implanted:Qty: 1 on 10/16/2023 by Nish Ortiz MD at [facility] N/A: Heart [facility] [id number] 04/23/2024 [id number] / / [id number] Insurance [place] [id number] [facility] MEDICARE ADVANTAGE [facility] MEDICARE ADVANTAGE [facility] MEDICARE ADVANTAGE Advance Directives For more information, please contact: [phone] * Full Code (Latest Code Status on File) Date Activated Date Inactivated Comments 10/20/2023 11:05 AM 10/25/2023 4:58 PM * Full Code Date Activated Date Inactivated Comments 09/24/2023 9:32 AM 09/24/2023 3:37 PM * Full Code Date Activated Date Inactivated Comments 06/28/2023 4:27 PM 07/04/2023 6:20 PM * Full Code Date Activated Date Inactivated Comments 06/28/2023 4:27 PM 06/28/2023 4:27 PM Care Teams Floor Supervisor Relationship Specialty Start Date End Date Madiha Spann MD PCP - General Family Medicine 03/04/23 Bryon Campo Jr., MD Surgeon Cardiothoracic Surgery 10/16/23 Nish Ortiz MD [address] [address] Consulting Physician Cardiothoracic Surgery 10/25/23 Miscellaneous, Not In File 10/25/23 Fang Ruiz Primary Police Manager 08/05/25
[2025-11-08 07:47] LABS: Hematocrit 41.2 % (37.0-47.0); Hemoglobin 13.0 g/dL (12.0-15.0); Immature Granulocyte Percent A 0.3 % (0-0.5); Lymphocytes Absolute Auto 1.41 K/mm3 (0.9-3.2); Mean Corpuscular HGB Conc 31.6 g/dl (32-36); Mean Corpuscular Hemoglobin 28.1 pg (26-34); Mean Corpuscular Volume 89.0 fl (80-100); Nucleated Red Blood Cells Absolute Auto 0.000 K/mm3 (0.0-0.012); Nucleated Red Blood Cells Perc 0.0 % (0.0-0.2); Platelet Count Result 210 k/mm3 (150-375); Red Blood Count 4.63 M/mm3 (4.2-5.4); White Blood Count 6.3 K/mm3 (4.5-10.0)
[2025-11-08 08:18] LABS: Alanine Aminotransferase 17 U/L (6-35); Albumin Level 4.8 g/dL (3.5-5.1); Alkaline Phosphatase 46 U/L (38-126); Anion Gap 11 mmol/L (4-12); Aspartate Amino Transferase 37 U/L (14-36); Bilirubin,Total 1.1 mg/dL (0.2-1.3); Blood Urea Nitrogen 19 mg/dL (7-17); Calcium 9.3 mg/dL (8.4-10.2); Carbon Dioxide 22 mmol/L (22-30); Chloride 100 mmol/L (98-107); Cholesterol 229 mg/dL (0-200); Estimated Glomerular Filt Rate > 60; Glucose 94 mg/dL (65-110); HDL Direct 60 mg/dL; Potassium 4.5 mmol/L (3.4-5.0); Sodium 133 mmol/L (137-145); Total Protein 8.0 g/dL (6.3-8.2); Triglycerides 137 mg/dL (<150)
[2025-11-08 08:58] LABS: Thyroid Stimulating Hormone 3.840 uIU/mL (0.465-4.680)
[2025-11-08 12:02] LABS: Free T4 Free Thyroxine 0.88 ng/dL (0.78-2.19)
== END 2025-11-08 07:23 | disposition home or self-care (01) ==
PROVIDERS: PCP Student in an Organized Health Care Education/Training Program; Visit Provider Student in an Organized Health Care Education/Training Program
DX: I48.91 Unspecified atrial fibrillation (principal); I10 Essential (primary) hypertension; M81.0 Age-related osteoporosis without current pathological fracture; R53.83 Other fatigue; E55.9 Vitamin D deficiency, unspecified
CPT/HCPCS: 36415; 80053; 80061; 82306; 84439; 84443; 85025